=== PATIENT | female | born 1960 | race Caucasian/White ===

== ENCOUNTER 2018-07-16 19:24 | Inpatient (IN) ==
[2018-07-16 20:21] VITALS: RESP 16
[2018-07-16] MEDS ORDERED: Sod Chloride 0.9% Inj 1,000 ML IV.SIG ONE (21:08)
[2018-07-16] MEDS ORDERED: Pantoprazole Inj 40 MG Vial IV.PUSH ONE ×2 (21:08→22:52)
[2018-07-16] MEDS ORDERED: HYDROmorphone PF Inj 0.5 MG/0.5 ML Syringe IV.PUSH STA (21:10)
[2018-07-16] MEDS ORDERED: HYDROmorphone PF Inj 2 MG/ML Vial IV.PUSH STA (21:23)
[2018-07-16 21:31] LABS: Baso # (Auto) 0.1 th/mm3 (0.0-0.2); Baso % (Auto) 0.6 % (0.0-2.0); Eos # (Auto) 0.2 th/mm3 (0.0-0.4); Eos % (Auto) 1.7 % (0.0-4.0); Hematocrit 24.4 % (35.0-46.0); Hemoglobin 7.7 gm/dL (11.6-15.3); Lymph # (Auto) 1.3 th/mm3 (1.0-4.8); Mean Corpuscular HGB Conc 31.6 % (32.0-36.0); Mean Corpuscular Hemoglobin 24.1 pg (27.0-34.0); Mean Corpuscular Volume 76.1 fL (80.0-100.0); Mean Platelet Volume 7.5 fL (7.0-11.0); Mono % (Auto) 7.3 % (0.0-8.0); Neut # (Auto) 10.5 th/mm3 (1.8-7.7); Neut % (Auto) 80.4 % (16.0-70.0); Platelet Count 544 th/mm3 (150-450); Red Blood Count 3.21 mil/mm3 (4.00-5.30); Red Cell Distribution Width 19.6 % (11.6-17.2); White Blood Count 13.1 th/mm3 (4.0-11.0)
--- NOTE | 2018-07-16 21:36 | ED ---
HPI General Chief complaint: GI Bleed Stated complaint: doc sent/GI Time Seen by Provider: 07/16/18 20:58 Source: patient and family Mode of arrival: wheelchair Limitations: no limitations History of Present Illness HPI Narrative: 57-year-old female that presents to the ED for evaluation of abdominal pain and possible GI bleed. Per patient she has small cell lung carcinoma diagnosed in September. Has been treated for it but continued to have symptoms. Apparently at the time patient was told that will be a good candidate for the new medication for it but apparently patient had a bad reaction where the immunotherapy attacked her own body and her cells and she started to develop thyroid issues as well as other conditions. She has been losing weight. Per patient on May she was here for evaluation of abdominal pain that continued to get worse. She chronically takes OxyContin and other pain medications. She follows with Dr. Esparza for oncology.. Dr. Esparza is doing new testing to see what they can treat her with. When she was seen here she had findings consistent with appears to be likely metastatic disease. Patient states that for the past month she has been having dark stools. She has been followed by her doctor for this and apparently had a transfusion on Thursday. She continues to have the dark stools but her main concern is to now she is having swelling on her belly that has been worsening for the past week and the pain has not improved even with her pain medication which chronically takes. She denies any chest pain or shortness of breath. No nausea or vomiting. Pain per patient is 10 out of 10. Bili on the abdomen. Related Data Home Medications Medication Instructions Recorded Confirmed albuterol sulfate 2 puff INHALATION Q4-6H PRN 06/12/18 07/16/18 cholecalciferol (vitamin D3) 1,000 unit PO DAILY 06/12/18 07/16/18 diphenhydramine HCl 25 mg PO Q4-6H PRN 06/12/18 07/16/18 duloxetine 60 mg PO BID 06/12/18 07/16/18 gabapentin 300 mg PO TID 06/12/18 07/16/18 oxycodone 10 mg PO Q4H PRN 06/12/18 07/16/18 oxycodone 30 mg PO Q12H 06/12/18 07/16/18 pantoprazole 40 mg PO DAILY 06/12/18 07/16/18 tizanidine 4 mg PO Q8H PRN 06/12/18 07/16/18 ferrous sulfate [iron] 325 mg PO BID 07/16/18 07/16/18 Previous Rx's Medication Instructions Recorded promethazine 12.5 mg PO Q6H #20 tab 06/12/18 sulfamethoxazole-trimethoprim 1 tab PO Q12H #14 tab 06/12/18 [Bactrim DS] Allergies Allergy/AdvReac Type Severity Reaction Status Date / Time duloxetine Allergy Severe NAUSEA Verified 07/16/18 20:17 morphine Allergy Severe NAUSEA Verified 07/16/18 20:17 rofecoxib Allergy Severe NAUSEA, Verified 07/16/18 20:17 HEADACHE adhesive tape Allergy Rash Verified 07/16/18 20:16 ondansetron [From Zofran] Allergy Vomiting Verified 07/16/18 20:16 Review of Systems ROS: all other systems reviewed are negative PMFSH History History Provided By: Patient Medical History Medical History Anxiety (Acute) COPD (chronic obstructive pulmonary disease) (Acute) Depressed (Acute) Hypothyroidism (acquired) (Acute) Inguinal hernia (Acute) Small cell lung cancer (Acute) Surgical History Surgical History History of hip surgery (Acute) Social History Social History Substance History: No History of Abuse Second Hand Smoke Exposure: No Smoking Status: Current every day smoker Tobacco Type: Cigarettes How Often Do You Have a Drink Containing Alcohol: Never Recent Travel in [facility] within the Last 8 Weeks: No Recent Out of Country Travel within the Last 8 Weeks: No Exam Narrative Exam Narrative: GENERAL: Well-groomed but in some discomfort SKIN: Focused skin assessment warm/dry. HEAD: Atraumatic. Normocephalic. EYES: Pupils equal and round. No scleral icterus. No injection or drainage. ENT: No nasal bleeding or discharge. Mucous membranes pink and moist. NECK: Trachea midline. No JVD. CARDIOVASCULAR: Regular rate and rhythm. No murmur appreciated. RESPIRATORY: No accessory muscle use. Clear to auscultation. Breath sounds equal bilaterally. GASTROINTESTINAL: Abdomen soft, very tender to touch, distended. Hepatic and splenic margins not palpable. REctal exam revealed multiple small hemorrhoids in the exterior anus. MUSCULOSKELETAL: No obvious deformities. No clubbing. No cyanosis. 2+ pitting edema in the lower extremities. NEUROLOGICAL: Awake and alert. No obvious cranial nerve deficits. Motor grossly within normal limits. Normal speech. PSYCHIATRIC: Appropriate mood and affect; insight and judgment normal. Procedures Hemaprompt Stool Procedural Steps Taken: specimen placed in appropriate test area, developer placed on specimen and control areas and controls appropriately positive and negative Hemaprompt Stool Result: positive Additional Comments: very small amount of stool obtained Course Initial Documented Vital Signs Temperature 98.5 F 07/16/18 20:17 Pulse Rate 76 07/16/18 20:17 Respiratory Rate 16 07/16/18 20:17 Blood Pressure 101/56 L 07/16/18 20:17 Pulse Oximetry 100 07/16/18 20:17 Last Documented Vital Signs Temperature 98.5 F 07/17/18 01:20 Pulse Rate 69 07/17/18 01:20 Respiratory Rate 16 07/17/18 01:20 Blood Pressure 111/66 07/17/18 01:20 Pulse Oximetry 99 07/17/18 01:20 Sign Out Sign Out Data: Patient Sign Out occurred on 07/16/18 at 23:42. Patient's care was discussed, and care was transferred from [place] to Fredrick Davenport DO. Sign Out Comment: Waiting on CT scans. Likely admit for intractable abdominal pain and GI bleed, getting blood and protonix. Last updated by Fadi Cobos PA at 07/16/18 23:02 Medical Decision Making MDM Narrative Medical decision making narrative: 57-year-old female that presents to the ED for evaluation of abdominal pain and swelling and possible GI bleed. Patient was properly examined and was found to have signs and symptoms concerning for likely metastatic disease worsening pain secondary to this. Patient was given IV medications. Labs and imaging order. Patient is very tender on exam. Cannot really get a good physical on her because she is extremely tender. She was given IV pain medications and will reassess. Imaging still pending at the running of this note. Case was signed out to DR Saravia pending disposition and possible admission. Patient given blood due to low hemoglobin. Medical Screen Exam Complete: Yes Emergency Medical Condition: Yes Differential Diagnosis Differential Diagnosis: Acute abdomen versus pancreatitis versus GI bleed versus gastric pain versus metastatic disease versus liver failure Medical Records Medical records reviewed: Yes I reviewed the patient's medical records. Lab Data Lab results reviewed: Yes I reviewed the patient's lab results. Result diagrams: 07/16/18 21:20 07/16/18 21:20 Lab Results 07/16/18 07/16/18 07/16/18 Range/Units 21:20 21:20 21:20 WBC 13.1 H (4.0-11.0) th/mm3 RBC 3.21 L (4.00-5.30) mil/mm3 Hgb 7.7 L (11.6-15.3) gm/dL Hct 24.4 L (35.0-46.0) % MCV 76.1 L (80.0-100.0) fL MCH 24.1 L (27.0-34.0) pg MCHC 31.6 L (32.0-36.0) % RDW 19.6 H (11.6-17.2) % Plt Count 544 H (150-450) th/mm3 MPV 7.5 (7.0-11.0) fL Neut % (Auto) 80.4 H (16.0-70.0) % Lymph % (Auto) 10.0 (9.0-44.0) % [place] % (Auto) 7.3 (0.0-8.0) % Eos % (Auto) 1.7 (0.0-4.0) % Baso % (Auto) 0.6 (0.0-2.0) % Neut # (Auto) 10.5 H (1.8-7.7) th/mm3 Lymph # (Auto) 1.3 (1.0-4.8) th/mm3 [place] # (Auto) 1.0 H (0.0-0.9) th/mm3 Eos # (Auto) 0.2 (0.0-0.4) th/mm3 Baso # (Auto) 0.1 (0.0-0.2) th/mm3 WBC Differential . Differential Comment Auto diff final PT 10.9 (9.8-11.6) sec INR 1.1 Ratio APTT 24.6 (24.3-30.1) sec Sodium 140 (136-145) meq/L Potassium 4.4 (3.5-5.1) meq/L Chloride 105 (98-107) meq/L Carbon Dioxide 27.9 (21.0-32.0) meq/L Anion Gap 7 (5-15) meq/L BUN 14 (7-18) mg/dL Creatinine 0.60 (0.50-1.00) mg/dL Estimated GFR Greater than 89 (>89) mL/min Random Glucose 96 (74-106) mg/dL Lactic Acid (0.4-2.0) mmol/L Calcium 8.1 L (8.5-10.1) mg/dL Total Bilirubin 0.2 (0.2-1.0) mg/dL AST 12 L (15-37) U/L ALT 10 (10-53) U/L Alkaline Phosphatase 53 (45-117) U/L Ammonia (11-32) mcmol/L Total Protein 5.9 L D (6.4-8.2) g/dL Albumin 2.2 L (3.4-5.0) g/dL Lipase 65 L (73-393) U/L Blood Type Antibody Screen MTS Gel Crossmatch Bld Prod Order Comment 07/16/18 07/16/18 07/16/18 Range/Units 21:20 21:20 21:20 WBC (4.0-11.0) th/mm3 RBC (4.00-5.30) mil/mm3 Hgb (11.6-15.3) gm/dL Hct (35.0-46.0) % MCV (80.0-100.0) fL MCH (27.0-34.0) pg MCHC (32.0-36.0) % RDW (11.6-17.2) % Plt Count (150-450) th/mm3 MPV (7.0-11.0) fL Neut % (Auto) (16.0-70.0) % Lymph % (Auto) (9.0-44.0) % [place] % (Auto) (0.0-8.0) % Eos % (Auto) (0.0-4.0) % Baso % (Auto) (0.0-2.0) % Neut # (Auto) (1.8-7.7) th/mm3 Lymph # (Auto) (1.0-4.8) th/mm3 [place] # (Auto) (0.0-0.9) th/mm3 Eos # (Auto) (0.0-0.4) th/mm3 Baso # (Auto) (0.0-0.2) th/mm3 WBC Differential Differential Comment PT (9.8-11.6) sec INR Ratio APTT (24.3-30.1) sec Sodium (136-145) meq/L Potassium (3.5-5.1) meq/L Chloride (98-107) meq/L Carbon Dioxide (21.0-32.0) meq/L Anion Gap (5-15) meq/L BUN (7-18) mg/dL Creatinine (0.50-1.00) mg/dL Estimated GFR (>89) mL/min Random Glucose (74-106) mg/dL Lactic Acid 1.6 (0.4-2.0) mmol/L Calcium (8.5-10.1) mg/dL Total Bilirubin (0.2-1.0) mg/dL AST (15-37) U/L ALT (10-53) U/L Alkaline Phosphatase (45-117) U/L Ammonia 15 (11-32) mcmol/L Total Protein (6.4-8.2) g/dL Albumin (3.4-5.0) g/dL Lipase (73-393) U/L Blood Type A Positive Antibody Screen Negative MTS Gel Crossmatch Bld Prod Order Comment 07/16/18 Range/Units 22:50 WBC (4.0-11.0) th/mm3 RBC (4.00-5.30) mil/mm3 Hgb (11.6-15.3) gm/dL Hct (35.0-46.0) % MCV (80.0-100.0) fL MCH (27.0-34.0) pg MCHC (32.0-36.0) % RDW (11.6-17.2) % Plt Count (150-450) th/mm3 MPV (7.0-11.0) fL Neut % (Auto) (16.0-70.0) % Lymph % (Auto) (9.0-44.0) % [place] % (Auto) (0.0-8.0) % Eos % (Auto) (0.0-4.0) % Baso % (Auto) (0.0-2.0) % Neut # (Auto) (1.8-7.7) th/mm3 Lymph # (Auto) (1.0-4.8) th/mm3 [place] # (Auto) (0.0-0.9) th/mm3 Eos # (Auto) (0.0-0.4) th/mm3 Baso # (Auto) (0.0-0.2) th/mm3 WBC Differential Differential Comment PT (9.8-11.6) sec INR Ratio APTT (24.3-30.1) sec Sodium (136-145) meq/L Potassium (3.5-5.1) meq/L Chloride (98-107) meq/L Carbon Dioxide (21.0-32.0) meq/L Anion Gap (5-15) meq/L BUN (7-18) mg/dL Creatinine (0.50-1.00) mg/dL Estimated GFR (>89) mL/min Random Glucose (74-106) mg/dL Lactic Acid (0.4-2.0) mmol/L Calcium (8.5-10.1) mg/dL Total Bilirubin (0.2-1.0) mg/dL AST (15-37) U/L ALT (10-53) U/L Alkaline Phosphatase (45-117) U/L Ammonia (11-32) mcmol/L Total Protein (6.4-8.2) g/dL Albumin (3.4-5.0) g/dL Lipase (73-393) U/L Blood Type Antibody Screen MTS Gel Crossmatch See Detail Bld Prod Order Comment Imaging Data Radiologist's impression: Chest CT 07/16/18 21:14 CONCLUSION: 1. Diffuse emphysematous change. 2. Interstitial disease being worse at the bases especially on the left. 3. Persistent focal densities in the lungs including an irregular density in the right upper lobe, groundglass opacity in the left lingula, focal density in the inferior lateral left lower lobe, and a subpleural density in the posterior lateral left mid chest. The mass at the inferior left lateral lower lobe has increased in size since the prior exam. All the other findings are stable. All these findings could be further characterized with a PET FDG study. 4. 1.4 cm left breast mass. This was present on the prior exam. Abdomen/Pelvis CT 07/16/18 22:29 CONCLUSION: 1. Area of suspected thickening small bowel in the posterior left mid abdomen and possibly to a lesser degree at the anterior right mid abdomen. The cause of these areas of suspected small bowel thickening and dilatation are not known. 2. Mild ascites. 3. Mild intrahepatic biliary duct dilatation. The gallbladder is nondistended. The gallbladder wall appears thickened. 4. Persistent 4 cm splenic mass. This appears larger on the current exam. Discharge Plan Discharge Disposition Patient Disposition: 30 Still Patient Discharge Condition Condition: Fair Discharge Details Diagnosis: GI bleed, Anemia, Lung cancer, Intractable abdominal pain Physicians Team ED Provider: Fredrick Davenport Primary Care Provider: UNKNOWN, Attending Provider: Brenda Dukes Other Providers: Whit Denton Tabitha N Discharge Interventions Interventions: ED Discharge Assessment Last Done: 07/17/18 04:29 Vital Signs Last Done: 07/16/18 22:18 Status ED Status: Left Department Discharge Information Discharge Date/Time: 07/17/18 04:16
[2018-07-16 21:44] LABS: Activated Partial Thrombo Time 24.6 sec (24.3-30.1); INR 1.1 Ratio; Prothrombin Time 10.9 sec (9.8-11.6)
[2018-07-16 21:49] LABS: Alanine Aminotransferase 10 U/L (10-53); Albumin 2.2 g/dL (3.4-5.0); Anion Gap 7 meq/L (5-15); Aspartate Aminotransferase 12 U/L (15-37); Blood Urea Nitrogen 14 mg/dL (7-18); Calcium 8.1 mg/dL (8.5-10.1); Carbon Dioxide 27.9 meq/L (21.0-32.0); Chloride 105 meq/L (98-107); Glomerular Filtration Rate Greater Than 89 mL/min (>89); Glucose,Random 96 mg/dL (74-106); Lipase 65 U/L (73-393); Potassium 4.4 meq/L (3.5-5.1); Sodium 140 meq/L (136-145)
[2018-07-16 21:52] LABS: Alkaline Phosphatase 53 U/L (45-117); Total Protein 5.9 g/dL (6.4-8.2)
[2018-07-16] MEDS ORDERED: HYDROmorphone PF Inj 2 MG/ML Vial IV.PUSH ONE (22:10)
[2018-07-16] MEDS ORDERED: Sodium Chlor 0.9% Inj 250 ML IV.SIG SCH (23:00)
[2018-07-16] MEDS: Pantoprazole Inj 80 MG in Sodium Chlor 0.9% Inj 100 ML IV.CONT SCH (23:10)
--- NOTE | 2018-07-16 23:55 | CT ---
EXAM DATE: 07/16/2018 11:34 PM EDT AGE/SEX: 57 years / Female INDICATIONS: Abnormal chest x-ray; possible mass. CLINICAL DATA: This is the patient's initial encounter. Patient reports that signs and symptoms have been present for 1 day and indicates a pain score of 5/10. MEDICAL/SURGICAL HISTORY: None. None. RADIATION DOSE: 5.10 CTDI (mGy) ; Combined studies COMPARISON: [facility] – [place], CT CHEST W CONTRAST, 06/12/2018. . TECHNIQUE: Multiple contiguous axial images were obtained through the chest during bolus infusion of 96 ml Omnipaque 350 (iohexol) nonionic water-soluble contrast as a cumulative dose for multiple exa ms. Images were obtained in suspended respiration using multiple row detector helical technique. U sing automated exposure control and adjustment of the mA and/or kV according to patient size, radiati on dose was kept as low as reasonably achievable to obtain optimal diagnostic quality images. DICOM format image data is available electronically for review and comparison. FINDINGS: Lungs: There is diffuse emphysematous change. There is interstitial disease being worse at the bases . There is continued irregular density in the medial right upper lobe. The central aspect of this are a measures approximately 1.7 cm. This appears unchanged from the prior exam. There is groundglass op[place] seen in the left lingula and posterior left lower lobe. There is more focal prominence in inters titial disease at the left lower lobe. There are some subpleural density seen at the posterior left l ateral aspect of the mid left chest. This subpleural area density measures approximately 2.7 x 1.2 cm . There is also a focal area of density seen in the anterior lateral inferior left lower lobe measuri ng up to 1.6 cm. This area appears larger on the current exam. Mediastinum: There is good visualizat ion of the great vessels of the middle mediastinum. No evidence of mediastinal or hilar adenopathy/m ass. Pleurae: No evidence of focal thickening or pleural effusion. Axillae: Unremarkable. Bony Structures: Anterior cervical fusion plate present. Focal bone lesions are not seen. Miscellaneous: The patient is to have a CT of the abdomen and pelvis to follow. There is a 1.4 cm le ft breast mass. CONCLUSION: 1. Diffuse emphysematous change. 2. Interstitial disease being worse at the bases especially on the left. 3. Persistent focal densities in the lungs including an irregular density in the right upper lobe, g roundglass opacity in the left lingula, focal density in the inferior lateral left lower lobe, and a subpleural density in the posterior lateral left mid chest. The mass at the inferior left lateral low er lobe has increased in size since the prior exam. All the other findings are stable. All these find ings could be further characterized with a PET FDG study. 4. 1.4 cm left breast mass. This was present on the prior exam. Electronically signed by: Jeff Monk MD 07/16/2018 11:53 PM EDT
[2018-07-17] MEDS ORDERED: HYDROmorphone PF Inj 2 MG/ML Vial IV.PUSH PRN (00:06)
--- NOTE | 2018-07-17 00:06 | CT ---
EXAM DATE: 07/16/2018 11:40 PM EDT AGE/SEX: 57 years / Female INDICATIONS: Abdominal pain and black stools; possible GI bleed. CLINICAL DATA: This is the patient's initial encounter. Patient reports that signs and symptoms have been present for 1 day and indicates a pain score of 6/10. MEDICAL/SURGICAL HISTORY: None. None. ORAL CONTRAST: No oral contrast ingested. RADIATION DOSE: 5.10 CTDI (mGy) ; Combined studies COMPARISON: [facility] – [place], CT ABDOMEN & PELVIS W CONTRAST, 06/12/2018. . TECHNIQUE: Multiple contiguous axial images were obtained through the abdomen and pelvis following b olus infusion of 96 ml Omnipaque 350 (iohexol) nonionic water-soluble contrast as a cumulative dose for multiple exams. No oral contrast ingested. Using automated exposure control and adjustment of t he mA and/or kV according to patient size, radiation dose was kept as low as reasonably achievable to obtain optimal diagnostic quality images. DICOM format image data is available electronically for r eview and comparison. FINDINGS: Lower Lungs: Please see the CT of the chest report. Liver: There is mild intrahepatic biliary duct dilatation. This is nonspecific. The gallbladder is no t distended. Gallbladder wall appears thickened. Some this appearance may be secondary to the lack of distention. Spleen: There is a persistent 4 x 3.3 cm mass at the posterior medial aspect of the spleen. This is smooth and round with internal heterogeneity. This appears larger when compared to the prior exam. On the prior exam, this measured approximately 3.7 x 3.1 cm. Pancreas: Unremarkable without mass or calcification. Kidneys: Normal in size and shape. No evidence of mass or hydronephrosis. Adrenal Glands: Unremarkable. Aorta: The aorta and proximal iliac vessels are grossly unremarkable without aneurysmal dilation. A therosclerotic calcifications are present. Bowel/Mesentery: The study was performed without oral contrast. There is an abnormal masslike area s een in the posterior left mid abdomen. This area measures approximately 7.7 x 6.4 x 7.4 cm. This appe ars to have a thickened peripheral area and a central area of fluid and air. This could be a distende d area of thickened bowel. An abscess cannot be excluded. This was present on the prior exam. It was less prominent. On the prior exam this appears more likely related to an area of focal thickening sma ll bowel. There also appears to be a possible new area of focal small bowel thickening in the anterio r right mid abdomen. There is free fluid in the peritoneal cavity mainly in the pelvis. Free air is n ot seen. Abdominal Wall: Intact. Retroperitoneum: No evidence of adenopathy in the retrocrural, para-aortic, or deep pelvic regions. Bladder: Contours are smooth. Reproductive Organs: No abnormal masses or calcifications seen. Inguinal: The inguinal region is unremarkable without evidence of adenopathy. Bony Structures: Unremarkable. CONCLUSION: 1. Area of suspected thickening small bowel in the posterior left mid abdomen and possibly to a less er degree at the anterior right mid abdomen. The cause of these areas of suspected small bowel thicke brandon and dilatation are not known. 2. Mild ascites. 3. Mild intrahepatic biliary duct dilatation. The gallbladder is nondistended. The gallbladder wall appears thickened. 4. Persistent 4 cm splenic mass. This appears larger on the current exam. Electronically signed by: Jeff Monk MD 07/17/2018 12:05 AM EDT
[2018-07-17] MEDS ORDERED: Temazepam 15 MG Capsule PO PRN (00:08)
[2018-07-17] MEDS ORDERED: Acetaminophen 325 MG Tablet PO PRN (00:08)
[2018-07-17] MEDS ORDERED: Bisacodyl 10 MG Supp RECTAL PRN (00:08)
[2018-07-17] MEDS: Ciprofloxacin 400 MG/200 ML 400 MG/200 ML PIGGYBACK IV.SIG SCH ×2 (01:22→13:16)
--- NOTE | 2018-07-17 02:27 | P.HPIM ---
History of Present Illness Primary Care Physician: UNKNOWN History of Present Illness: This is a 57-year-old female with a PMH of Small Cell Lung CA, Anxiety, Depression, COPD, Chronic Pain and Tobacco Abuse who was referred to the ER by Dr. Esparza for transfusion. States she was seen by Dr. Esparza on Thursday (3 days ago), Hgb 6.4 at that time, previously 10.1 on 06/12/18, s/p 1u pRBC transfusion 07/12/18. Repeat Hgb today 7.7. Notes dark stool in addition to abdominal pain. Pain is generalized, severe, constant, 10/10, non-radiating, associated w / significant bloating. No reported nausea/vomiting. On arrival, BP 114/67, HR 72, O2 sat 99% on RA, Afebrile. WBC 13.1. Hemoglobin 7.7. INR 1.1. Hemoccult +. Chemistry essentially unremarkable. CT Chest w/ persistent focal densities in the lungs, inferior left lateral lobe mass increased in size, 1.4 cm breast mass seen on prior exam. CT Abdomen/Pelvis suspected thickening small bowel and anterior right mid abdomen, mild ascites, gallbladder wall thickening, persistent 4 cm splenic mass. 2u pRBC ordered, receiving transfusion at this time. - Diagnosis (1) GI bleed (2) Anemia (3) Intractable abdominal pain (4) Lung cancer Inpatient Certification: I certify that the inpatient services were ordered in accordance with Medicare regulations governing the order. This includes certification that hospital inpatient services are reasonable and necessary and in the case of services not specified as inpatient-only under 42 CFR 419.22(n), that they are appropriately provided as inpatient services in accordance to with the 2-midnight benchmark under 43 CFR 412.3(e) Estimated Total Length of Stay (Days): 2 Plans for Post Hospital Care: Not yet determined Review of Systems PAST FAMILY HISTORY: Reviewed. No h/o DM or CAD All other systems reviewed negative except as stated in HPI PMFSH - History History Provided By: Patient - Medical History Medical History: Medical History (Last Reviewed 07/16/18 @ 21:33 by ISHAAN Beach) Anxiety COPD (chronic obstructive pulmonary disease) Depressed Hypothyroidism (acquired) Inguinal hernia Small cell lung cancer - Surgical History Surgical History: Surgical History (Last Reviewed 07/16/18 @ 21:33 by ISHAAN Beahc) History of hip surgery - Tobacco History Second Hand Smoke Exposure: Yes Tobacco Use In Past 30 Days: Yes Smoking Status: Current every day smoker Tobacco Type: Cigarettes - Alcohol History How Often Do You Have a Drink Containing Alcohol: Never - Substance Use History Substance History: No History of Abuse - Travel History Recent Travel in the [place] Within the Last 8 Weeks: No Recent Travel Out of the Country Within the Last 8 Weeks: No - Immunization History Tetanus Immunization: Unsure Medications and Allergies Active Medications: Active Medications Acetaminophen (Tylenol) 650 mg PO Q4H PRN PRN Reason: Temp > 100.4 Al Hydroxide/Mg Hydroxide (Milk Of Magnesia Liq) 30 ml PO Q12H PRN PRN Reason: Mild Constipation Bisacodyl (Dulcolax Supp) 10 mg RECTAL DAILY PRN PRN Reason: SEVERE CONSITIPATION Duloxetine HCl (Cymbalta) 60 mg PO BID [facility] Last Admin: 07/17/18 01:23 Dose: 30 mg Hydromorphone HCl (Dilaudid Pf Inj) 1 mg IV.PUSH Q4H PRN PRN Reason: PAIN 6-10 Sodium Chloride (Ns Inj) 250 mls @ 15 mls/hr IV.SIG ONCE TISH Stop: 07/17/18 15:39 Pantoprazole Sodium 80 mg/ (Sodium Chloride) 100 mls @ 10 mls/hr IV.CONT CONT TISH Last Admin: 07/16/18 23:10 Dose: 10 mls/hr Ciprofloxacin/Dextrose (Cipro 400 Mg/200 Ml Inj) 400 mg in 200 mls @ 200 mls/ hr IV.SIG Q12H [facility] Last Infusion: 07/17/18 01:54 Dose: 200 mls/hr Metronidazole/Sodium Chloride (Flagyl 500 Mg Inj) 100 mls @ 100 mls/hr IV.SIG Q8H [facility] Last Admin: 07/17/18 01:54 Dose: 100 mls/hr Lactulose (Lactulose Liq) 30 ml PO DAILY PRN PRN Reason: SEVERE CONSITIPATION Oxycodone HCl (Roxicodone) 10 mg PO Q4H PRN PRN Reason: PAIN 3-5 Prochlorperazine Edisylate (Compazine Inj) 10 mg IV.PUSH Q6H PRN PRN Reason: NAUSEA/VOMITING Senna/Docusate Sodium (Carlita-Colace) 1 tab PO BID TISH Sennosides (Senokot) 17.2 mg PO Q12H PRN PRN Reason: Moderate Constipation Temazepam (Restoril) 15 mg PO HS PRN PRN Reason: INSOMNIA Allergies Allergy/AdvReac Type Severity Reaction Status Date / Time duloxetine Allergy Severe NAUSEA Verified 07/16/18 20:17 morphine Allergy Severe NAUSEA Verified 07/16/18 20:17 rofecoxib Allergy Severe NAUSEA, Verified 07/16/18 20:17 HEADACHE adhesive tape Allergy Rash Verified 07/16/18 20:16 ondansetron [From Zofran] Allergy Vomiting Verified 07/16/18 20:16 Home Medications Medication Instructions Recorded Confirmed Type albuterol sulfate 2 puff INHALATION Q4-6H PRN 06/12/18 07/16/18 History cholecalciferol (vitamin D3) 1,000 unit PO DAILY 06/12/18 07/16/18 History diphenhydramine HCl 25 mg PO Q4-6H PRN 06/12/18 07/16/18 History duloxetine 60 mg PO BID 06/12/18 07/16/18 History gabapentin 300 mg PO TID 06/12/18 07/16/18 History oxycodone 10 mg PO Q4H PRN 06/12/18 07/16/18 History oxycodone 30 mg PO Q12H 06/12/18 07/16/18 History pantoprazole 40 mg PO DAILY 06/12/18 07/16/18 History tizanidine 4 mg PO Q8H PRN 06/12/18 07/16/18 History ferrous sulfate [iron] 325 mg PO BID 07/16/18 07/16/18 History Exam Vital signs: Vital Signs 07/16/18 20:17 07/16/18 20:20 07/16/18 21:36 Temperature 98.5 F Pulse Rate 76 68 Respiratory Rate 16 16 Blood Pressure 101/56 L 92/58 L Pulse Oximetry 100 99 99 07/16/18 22:03 07/16/18 22:18 07/16/18 23:42 Temperature 98.4 F Pulse Rate 72 70 Respiratory Rate 16 16 16 Blood Pressure 114/67 98/60 L Pulse Oximetry 99 99 07/16/18 23:59 07/17/18 01:20 Temperature 98.5 F 98.5 F Pulse Rate 70 69 Respiratory Rate 16 16 Blood Pressure 98/60 L 111/66 Pulse Oximetry 99 99 Intake & Output 07/16/18 07/16/18 07/17/18 06:59 18:59 06:59 Intake Total 1500 / 1500 Balance 1500 / 1500 Weight 41.277 kg Intake: IV 1100 / 1100 Cipro 400 MG/200 ML Inj 400 mg 100 / 100 In 200 ml @ 200 mls/hr IV.SIG Q12H TISH Rx#:[id number] NS Inj 1,000 ML @ Wide Open IV. 1000 / 1000 SIG BOLUS ONE Rx#:[id number] Intake (Blood Product) Amt 400 / 400 Rbc As-3 Leukoreduced Unit 400 / 400 [id number] Narrative: PE: GENERAL: Middle-aged white female in no acute distress. Daughter at bedside HEENT: PERRLA, EOMI. No scleral icterus or conjunctival pallor. No lid lag or facial droop. CARDIOVASCULAR: Regular rate and rhythm. No obvious murmurs to auscultation. No chest tenderness to palpation. RESPIRATORY: No obvious rhonchi or wheezing. Clear to auscultation. Breath sounds equal bilaterally. GASTROINTESTINAL: Abdomen soft, generalized tenderness to palpation, + distention. BS normal. MUSCULOSKELETAL: Extremities without clubbing, cyanosis, or edema. No obvious deformities. NEUROLOGICAL: Flat affect, minimally conversive. Awake, alert and oriented x4. No focal neurologic deficits. Moving both upper and lower extremities spontaneously. Results - Labs CBC & Chem 7: 07/16/18 21:20 07/16/18 21:20 Labs: Short CBC 07/16/18 Range/Units 21:20 WBC 13.1 H (4.0-11.0) th/mm3 Hgb 7.7 L (11.6-15.3) gm/dL Hct 24.4 L (35.0-46.0) % Plt Count 544 H (150-450) th/mm3 BMP 07/16/18 21:20 Sodium 140 Potassium 4.4 Chloride 105 Carbon Dioxide 27.9 BUN 14 Creatinine 0.60 Calcium 8.1 L Liver Function 07/16/18 Range/Units 21:20 Total Bilirubin 0.2 (0.2-1.0) mg/dL AST 12 L (15-37) U/L ALT 10 (10-53) U/L Alkaline Phosphatase 53 (45-117) U/L Albumin 2.2 L (3.4-5.0) g/dL - Imaging Impressions Chest CT 07/16/18 21:14 CONCLUSION: 1. Diffuse emphysematous change. 2. Interstitial disease being worse at the bases especially on the left. 3. Persistent focal densities in the lungs including an irregular density in the right upper lobe, groundglass opacity in the left lingula, focal density in the inferior lateral left lower lobe, and a subpleural density in the posterior lateral left mid chest. The mass at the inferior left lateral lower lobe has increased in size since the prior exam. All the other findings are stable. All these findings could be further characterized with a PET FDG study. 4. 1.4 cm left breast mass. This was present on the prior exam. Abdomen/Pelvis CT 07/16/18 22:29 CONCLUSION: 1. Area of suspected thickening small bowel in the posterior left mid abdomen and possibly to a lesser degree at the anterior right mid abdomen. The cause of these areas of suspected small bowel thickening and dilatation are not known. 2. Mild ascites. 3. Mild intrahepatic biliary duct dilatation. The gallbladder is nondistended. The gallbladder wall appears thickened. 4. Persistent 4 cm splenic mass. This appears larger on the current exam. Caprini VTE Risk Assessment Caprini VTE Risk Assessment: No/Low Risk (score <= 1) VTE Pharmacological Exception Reason: Active bleeding Caprini Risk Assessment Model: Point Value = 1 Point Value = 2 Point Value = 3 Point Value = 5 Age 41-60 Minor surgery BMI > 25 kg/m2 Swollen legs Varicose veins or History of unexplained or recurrent spontaneous Oral contraceptives or hormone replacement Sepsis (< 1 month) Serious lung disease, including pneumonia (< 1 month) Abnormal pulmonary function Acute myocardial infarction Congestive heart failure (< 1 month) History of inflammatory bowel disease Medical patient at bed rest Age 61-74 Arthroscopic surgery Major open surgery (> 45 min) Laparoscopic surgery (> 45 min) Malignancy Confined to bed (> 72 hours) Immobilizing plaster cast Central venous access Age >= 75 History of VTE Family history of VTE Factor V Leiden Prothrombin [id number] Lupus anticoagulant Anticardiolipin antibodies Elevated serum homocysteine Heparin-induced thrombocytopenia Other congenital or acquired thrombophilia Stroke (< 1 month) Elective arthroplasty Hip, pelvis, or leg fracture Acute spinal cord injury (< 1 month) Prophylaxis Regimen: Total Risk Factor Score Risk Level Prophylaxis Regimen 0-1 Low Early ambulation 2 Moderate Order ONE of the following: *Sequential Compression Device (SCD) *Heparin 5000 units SQ BID 3-4 Higher Order ONE of the following medications: *Heparin 5000 units SQ TID *Enoxaparin/Lovenox 40 mg SQ daily (WT < 150 kg, CrCl > 30 mL/min) *Enoxaparin/Lovenox 30 mg SQ daily (WT < 150 kg, CrCl > 10-29 mL/min) *Enoxaparin/Lovenox 30 mg SQ BID (WT < 150 kg, CrCl > 30 mL/min) AND/OR *Sequential Compression Device (SCD) 5 or more Highest Order ONE of the following medications: *Heparin 5000 units SQ TID (Preferred with Epidurals) *Enoxaparin/Lovenox 40 mg SQ daily (WT < 150 kg, CrCl > 30 mL/min) *Enoxaparin/Lovenox 30 mg SQ daily (WT < 150 kg, CrCl > 10-29 mL/min) *Enoxaparin/Lovenox 30 mg SQ BID (WT < 150 kg, CrCl > 30 mL/min) AND *Sequential Compression Device (SCD) Assessment and Plan - Assessment (1) GI bleed Code(s): K92.2 - Gastrointestinal hemorrhage, unspecified Status: Acute (2) Anemia Code(s): D64.9 - Anemia, unspecified Status: Acute (3) Intractable abdominal pain Code(s): R10.9 - Unspecified abdominal pain Status: Acute (4) Lung cancer Code(s): C34.90 - Malignant neoplasm of unspecified part of unspecified bronchus or lung Status: Acute - Plan A/P: 1. GI Bleed: Hemoccult +, Protonix gtt, consult GI for further evaluation/ intervention. 2. Anemia: Secondary to above, Hgb 10.1 on 06/12/18, 6.4 on 07/12/18 s/p 1u pRBC transfusion, currently Hgb 7.7, 2u pRBC ordered in ER, currently receiving transfusion, check repeat Hgb/Hct after transfusion completed. 3. Lung CA: Following w/ Dr. Esparza, will consult for further evaluation/ recommendations. 4. Intractable Abd Pain: CT Abd/Pelvis w/ small bowel wall thickening, gallbladder wall thickening, images reviewed, WBC 13.1, possible colitis/early cholecystitis, will start on empiric treatment w/ Cipro/Flagyl, analgesics/ antiemetics as needed. 5. DVT Prophylaxis: Pharmacologic contraindication due to GI Bleed 6. Social work for DC planning as needed. 7. Case discussed at length with the ER physician, lab/record/imaging reviewed by me.
[2018-07-17] MEDS: Senna/Docusate Sodium 8.6/50 MG Tablet PO SCH (09:15)
[2018-07-17] MEDS ORDERED: Lidocaine PF 1% Inj 5 ML Syringe INFILTRATN ONE (12:00)
[2018-07-17] MEDS ORDERED: Phenylephrine/NS 1000 MCG/10ML Syringe IV.PUSH ONE (12:00)
[2018-07-17] MEDS ORDERED: Glycopyrrolate Inj 1 MG/5 ML Syringe IV.PUSH ONE (12:00)
--- NOTE | 2018-07-17 12:55 | MB ---
cc: Gudelia Nunez MD DATE: 07/17/2018 CHIEF COMPLAINT: 1. History of non-small cell lung cancer. 2. Gastrointestinal bleed. HISTORY OF PRESENT ILLNESS: Ms. Jovel is a 57-year-old lady with a history of non-small cell lung cancer. She was diagnosed with non-small cell lung cancer in approximately 09/2017. She was seen by an oncologist up in [place], [place]. She was found to have T4 N3 M1 metastatic lung adenocarcinoma after she presented in 09/2017 with progressively worsening shortness of breath. Imaging at that time showed a left-sided chest mass with a large mass in the left lower lobe with mediastinal and hilar adenopathy. She was noted to have periaortic lymph node metastasis, right jugular lymph node metastasis, as well as splenic lesions. She was also found to have postobstructive pneumonia and she was treated with antibiotics. Biopsy performed of the retroperitoneal adenopathy showed poorly differentiated adenocarcinoma of the lung primary. In 10/2017, she underwent palliative radiation therapy and received 10 fractions for a total of 30 Gy. This was due to increasing compression of the right and left bronchus and potential for catastrophic respiratory failure. Molecular testing was performed and she was found to have 100% PD-L1 positivity and she was subsequently initiated on Keytruda therapy in 10/2017. She was on that for approximately 5 months. She developed thyrotoxicosis in 01/2018 and pembrolizumab was held at that time. She has established care in our clinic with my colleague, Dr. Esparza. She was sent to the emergency room due to progressively worsening abdominal pain as well as anemia. She was transfused 1 unit of packed red blood cells. Outpatient laboratory studies with a hemoglobin of 6.4, MCV is 74.5, platelet count of 587,000. Creatinine, liver function tests not elevated. Total protein is low at 5.3 and albumin is low at 2.1. After blood transfusion hemoglobin tierra appropriately to 7.7. DIAGNOSTIC DATA: Imaging studies performed on 07/16/2018. CT scan of the chest showed diffuse emphysematous change, interstitial disease, is worse at the bases. She has focal densities in the lungs, including an irregular density in the right upper lobe, ground-glass opacity in the left lingula, focal density in the inferior lateral left lower lobe, and a subpleural density in the posterior lateral left mid chest. The mass at the inferior left lateral lower lobe has increased in size from the prior exam. Also noted was a 1.4 cm left breast mass. CT scan of the abdomen and pelvis from the same date showed a persistent 4 x 3.3 cm mass at the posterior aspect of the spleen. She was also found to have an abnormal mass-like area seen in the posterior left mid abdomen which measured approximately 7.7 x 6.4 x 7.7 cm. The radiologist noted that this was a thickened peripheral area and central area of fluid and air. They said it could be a distended area of thickened bowel and abscess could not be excluded. They said it was likely related to an area of focal thickening of small bowel. Free fluid noted within the peritoneal cavity in the pelvis. REVIEW OF SYSTEMS: Positive for dark bloody and tarry stools and significant abdominal pain. PAST MEDICAL HISTORY: 1. Metastatic non-small cell, lung adenocarcinoma. PD-L1 positive at 100%. 2. Asthma. 3. Fibromyalgia. PAST SURGICAL HISTORY: Recent orthopedic surgeries. SOCIAL HISTORY: The patient has smoked 1 pack a day for many years. She is not interested in quitting. She denies alcohol use. She has a good support system with her daughter. FAMILY HISTORY: The patient reports multiple family members with malignancy. PHYSICAL EXAMINATION: VITAL SIGNS: Temperature 97.8, pulse 59, respiratory rate 16, blood pressure is 81/53 GENERAL: Thin, chronically ill-appearing lady, in no distress, sitting at bedside. HEENT: Head is normocephalic, atraumatic. Eyes: PERRLA, EOMI. No scleral icterus. CARDIOVASCULAR: Regular rate and rhythm with no murmurs. RESPIRATORY: Clear to auscultation bilaterally. ABDOMEN: Distended abdomen, diffusely tender to palpation. EXTREMITIES: No edema. NEUROLOGIC: Grossly nonfocal. PSYCHIATRIC: Tearful and anxious. ASSESSMENT AND PLAN: 1. Metastatic lung adenocarcinoma with metastatic disease to the hilar adenopathy, mediastinal adenopathy, retroperitoneal adenopathy, splenic lesion. 100% PD-L1 positivity with good response to Keytruda. This has been held for the past several months due to thyrotoxicosis. She will need close follow in clinic with Dr. Esparza to determine further treatment of metastatic NSCLC. Will need to compare most recent scans performed at our institution with scans performed in [place] to determine growth of disease. 2. Anemia status post transfusion of 1 unit of packed red blood cells with appropriate response. We will check iron profile, vitamin B12, and folate. The patient may need iron while inpatient. 3. Gastrointestinal bleed. GI team has been consulted. Area of thickened small bowel seen on imaging study. MD ADRIANA Brooks/ , 11:05 AM , 11:16 AM MICHAEL
--- NOTE | 2018-07-17 13:19 | P.CONGI ---
History of Present Illness Consult date: 07/17/18 Consult reason: GI bleeding Chief complaint: GI bleed, anemia History of Present Illness: This is a slim 57-year-old female who was admitted on 07/16/2018 with symptomatic anemia and possible GI bleed. According to the record patient was sent over per Dr. Esparza for transfusion. According to the record approximately 4 days ago patient's hemoglobin was 6.4 and previously noted 10.1 on 06/12/2018 patient was given 1 unit of blood and repeat hemoglobin was 7.7. Patient has history of small cell lung cancer. Currently patient has symptoms of upper abdomen and epigastric region with some guarding and increased pain over the past week and a half. Patient's also noted some melena stools and bloating for a week and a half but no nausea vomiting. Patient is a fair to poor historian and has her daughter on the phone checking some of her paperwork for her history. Previous EGD was noted to be done on May 10, 2018 daughter could not find the results page currently patient is complaining of some dyspepsia which has been off and on for the past 2 months and noted that she had been taken some antacids and Protonix. Patient denies any family history of colon cancer and states that she had a colonoscopy at least one year ago at an out-of-town facility but unknown results. Currently patient is n.p.o. and appears to be uncomfortable on a pain scale of 10 out of 10 and is waiting on pain meds she is requesting any testing be done today if at all possible. Some of the information is being gathered from the record on this case as patient currently is poor historian and is in a good bit of pain. Review of Systems All other systems reviewed negative except as stated in HPI PMFSH - History History Provided By: Patient - Medical History Medical History: Medical History (Last Reviewed 07/16/18 @ 21:33 by ISHAAN Beach) Anxiety COPD (chronic obstructive pulmonary disease) Depressed Hypothyroidism (acquired) Inguinal hernia Small cell lung cancer - Surgical History Surgical History: Surgical History (Last Reviewed 07/16/18 @ 21:33 by ISHAAN Beach) History of hip surgery - Tobacco History Second Hand Smoke Exposure: No Tobacco Use In Past 30 Days: Yes Smoking Status: Current every day smoker Tobacco Type: Cigarettes - Alcohol History How Often Do You Have a Drink Containing Alcohol: Never - Substance Use History Substance History: No History of Abuse - Travel History Recent Travel in the [place] Within the Last 8 Weeks: No Recent Travel Out of the Country Within the Last 8 Weeks: No - Immunization History Tetanus Immunization: Unsure Medications and Allergies Active Medications: Active Medications Acetaminophen (Tylenol) 650 mg PO Q4H PRN PRN Reason: Temp > 100.4 Al Hydroxide/Mg Hydroxide (Milk Of Magnesia Liq) 30 ml PO Q12H PRN PRN Reason: Mild Constipation Bisacodyl (Dulcolax Supp) 10 mg RECTAL DAILY PRN PRN Reason: SEVERE CONSITIPATION Duloxetine HCl (Cymbalta) 60 mg PO BID [facility] Last Admin: 07/17/18 09:15 Dose: 60 mg Hydromorphone HCl (Dilaudid Pf Inj) 1 mg IV.PUSH Q4H PRN PRN Reason: PAIN 6-10 Last Admin: 07/17/18 04:39 Dose: 1 mg Sodium Chloride (Ns Inj) 250 mls @ 15 mls/hr IV.SIG ONCE [facility] Stop: 07/17/18 15:39 Last Admin: 07/17/18 04:35 Dose: Not Given Pantoprazole Sodium 80 mg/ (Sodium Chloride) 100 mls @ 10 mls/hr IV.CONT CONT [facility] Last Admin: 07/16/18 23:10 Dose: 10 mls/hr Ciprofloxacin/Dextrose (Cipro 400 Mg/200 Ml Inj) 400 mg in 200 mls @ 200 mls/ hr IV.SIG Q12H [facility] Last Infusion: 07/17/18 04:36 Dose: Infused Metronidazole/Sodium Chloride (Flagyl 500 Mg Inj) 100 mls @ 100 mls/hr IV.SIG Q8H [facility] Last Admin: 07/17/18 09:15 Dose: 100 mls/hr Lactulose (Lactulose Liq) 30 ml PO DAILY PRN PRN Reason: SEVERE CONSITIPATION Nicotine (Habitrol 14 Mg Patch.24 Hr) 1 patch T-DERMAL DAILY [facility] Oxycodone HCl (Roxicodone) 10 mg PO Q4H PRN PRN Reason: PAIN 3-5 Patch Removal (Remove Old Patch) 1 each T-DERMAL DAILY [facility] Prochlorperazine Edisylate (Compazine Inj) 10 mg IV.PUSH Q6H PRN PRN Reason: NAUSEA/VOMITING Senna/Docusate Sodium (Carlita-Colace) 1 tab PO BID [facility] Last Admin: 07/17/18 09:15 Dose: Not Given Sennosides (Senokot) 17.2 mg PO Q12H PRN PRN Reason: Moderate Constipation Temazepam (Restoril) 15 mg PO HS PRN PRN Reason: INSOMNIA Allergies Allergy/AdvReac Type Severity Reaction Status Date / Time duloxetine Allergy Severe NAUSEA Verified 07/16/18 20:17 morphine Allergy Severe NAUSEA Verified 07/16/18 20:17 rofecoxib Allergy Severe NAUSEA, Verified 07/16/18 20:17 HEADACHE adhesive tape Allergy Rash Verified 07/16/18 20:16 ondansetron [From Zofran] Allergy Vomiting Verified 07/16/18 20:16 Home Medications Medication Instructions Recorded Confirmed Type albuterol sulfate 2 puff INHALATION Q4-6H PRN 06/12/18 07/16/18 History cholecalciferol (vitamin D3) 1,000 unit PO DAILY 06/12/18 07/16/18 History diphenhydramine HCl 25 mg PO Q4-6H PRN 06/12/18 07/16/18 History duloxetine 60 mg PO BID 06/12/18 07/16/18 History gabapentin 300 mg PO TID 06/12/18 07/16/18 History oxycodone 10 mg PO Q4H PRN 06/12/18 07/16/18 History oxycodone 30 mg PO Q12H 06/12/18 07/16/18 History pantoprazole 40 mg PO DAILY 06/12/18 07/16/18 History tizanidine 4 mg PO Q8H PRN 06/12/18 07/16/18 History ferrous sulfate [iron] 325 mg PO BID 07/16/18 07/16/18 History Exam Vital signs: Vital Signs 07/16/18 20:17 07/16/18 20:20 07/16/18 21:36 Temperature 98.5 F Pulse Rate 76 68 Respiratory Rate 16 16 Blood Pressure 101/56 L 92/58 L Pulse Oximetry 100 99 99 07/16/18 22:03 07/16/18 22:18 07/16/18 23:42 Temperature 98.4 F Pulse Rate 72 70 Respiratory Rate 16 16 16 Blood Pressure 114/67 98/60 L Pulse Oximetry 99 99 08/17/18 23:59 07/17/18 01:20 07/17/18 08:00 Temperature 98.5 F 98.5 F 97.8 F Pulse Rate 70 69 59 L Respiratory Rate 16 16 16 Blood Pressure 98/60 L 111/66 81/53 L Pulse Oximetry 99 99 96 07/17/18 12:00 Temperature 98.1 F Pulse Rate 74 Respiratory Rate 16 Blood Pressure 95/65 L Pulse Oximetry 97 Intake & Output 07/16/18 07/17/18 07/17/18 18:59 06:59 18:59 Intake Total 1600 / 1600 100 / 100 Balance 1600 / 1600 100 / 100 Weight 41.277 kg Intake: IV 1200 / 1200 100 / 100 Cipro 400 MG/200 ML Inj 400 mg 200 / 200 In 200 ml @ 200 mls/hr IV.SIG Q12H [facility] Rx#:[id number] NS Inj 1,000 ML @ Wide Open IV. 1000 / 1000 SIG [facility] Rx#:[id number] Flagyl 500 MG Inj 100 ML @ 100 0 / 0 100 / 100 mls/hr IV.SIG Q8H [facility] Rx#: [id number] Intake (Blood Product) Amt 400 / 400 Rbc As-3 Leukoreduced Unit 400 / 400 [id number] Other: Weight On Admission 41.277 kg - Constitutional moderate distress, thin, cachectic - Routine HEENT Exam Head: Present: normocephalic ENT: Present: mucous membranes dry - Routine Respiratory Exam Present: accessory muscle use (Low volumes but no obvious rhonchi) - Routine Cardiovascular Exam Present: S1, S2 - Routine Abdominal Exam Present: soft (Round, some guarding 2 epigastric area,taut) - Routine Skin Exam Present: pallor Results - Labs CBC & Chem 7: 07/16/18 21:20 07/16/18 21:20 Labs: Laboratory Results - last 24 hr 07/16/18 07/16/18 07/16/18 21:20 21:20 21:20 WBC 13.1 H RBC 3.21 L Hgb 7.7 L Hct 24.4 L MCV 76.1 L MCH 24.1 L MCHC 31.6 L RDW 19.6 H Plt Count 544 H MPV 7.5 Neut % (Auto) 80.4 H Lymph % (Auto) 10.0 Clinton % (Auto) 7.3 Eos % (Auto) 1.7 Baso % (Auto) 0.6 Neut # (Auto) 10.5 H Lymph # (Auto) 1.3 Clinton # (Auto) 1.0 H Eos # (Auto) 0.2 Baso # (Auto) 0.1 WBC Differential . Differential Comment Auto diff final PT 10.9 INR 1.1 APTT 24.6 Sodium 140 Potassium 4.4 Chloride 105 Carbon Dioxide 27.9 Anion Gap 7 BUN 14 Creatinine 0.60 Estimated GFR Greater than 89 Random Glucose 96 Lactic Acid Calcium 8.1 L Total Bilirubin 0.2 AST 12 L ALT 10 Alkaline Phosphatase 53 Ammonia Total Protein 5.9 L D Albumin 2.2 L Lipase 65 L Blood Type Antibody Screen MTS Gel Crossmatch Bld Prod Order Comment 07/16/18 07/16/18 07/16/18 21:20 21:20 21:20 WBC RBC Hgb Hct MCV MCH MCHC RDW Plt Count MPV Neut % (Auto) Lymph % (Auto) Clinton % (Auto) Eos % (Auto) Baso % (Auto) Neut # (Auto) Lymph # (Auto) Clinton # (Auto) Eos # (Auto) Baso # (Auto) WBC Differential Differential Comment PT INR APTT Sodium Potassium Chloride Carbon Dioxide Anion Gap BUN Creatinine Estimated GFR Random Glucose Lactic Acid 1.6 Calcium Total Bilirubin AST ALT Alkaline Phosphatase Ammonia 15 Total Protein Albumin Lipase Blood Type A Positive Antibody Screen Negative MTS Gel Crossmatch Bld Prod Order Comment 07/16/18 22:50 WBC RBC Hgb Hct MCV MCH MCHC RDW Plt Count MPV Neut % (Auto) Lymph % (Auto) [place] % (Auto) Eos % (Auto) Baso % (Auto) Neut # (Auto) Lymph # (Auto) [place] # (Auto) Eos # (Auto) Baso # (Auto) WBC Differential Differential Comment PT INR APTT Sodium Potassium Chloride Carbon Dioxide Anion Gap BUN Creatinine Estimated GFR Random Glucose Lactic Acid Calcium Total Bilirubin AST ALT Alkaline Phosphatase Ammonia Total Protein Albumin Lipase Blood Type Antibody Screen MTS Gel Crossmatch See Detail Bld Prod Order Comment - Imaging Impressions Chest CT 07/16/18 21:14 CONCLUSION: 1. Diffuse emphysematous change. 2. Interstitial disease being worse at the bases especially on the left. 3. Persistent focal densities in the lungs including an irregular density in the right upper lobe, groundglass opacity in the left lingula, focal density in the inferior lateral left lower lobe, and a subpleural density in the posterior lateral left mid chest. The mass at the inferior left lateral lower lobe has increased in size since the prior exam. All the other findings are stable. All these findings could be further characterized with a PET FDG study. 4. 1.4 cm left breast mass. This was present on the prior exam. Abdomen/Pelvis CT 07/16/18 22:29 CONCLUSION: 1. Area of suspected thickening small bowel in the posterior left mid abdomen and possibly to a lesser degree at the anterior right mid abdomen. The cause of these areas of suspected small bowel thickening and dilatation are not known. 2. Mild ascites. 3. Mild intrahepatic biliary duct dilatation. The gallbladder is nondistended. The gallbladder wall appears thickened. 4. Persistent 4 cm splenic mass. This appears larger on the current exam. Assessment and Plan (1) GI bleed Status: Acute Code(s): K92.2 - Gastrointestinal hemorrhage, unspecified (2) Anemia Status: Acute Code(s): D64.9 - Anemia, unspecified (3) Lung cancer Status: Acute Code(s): C34.90 - Malignant neoplasm of unspecified part of unspecified bronchus or lung (4) Intractable abdominal pain Status: Acute Code(s): R10.9 - Unspecified abdominal pain - Plan Dyspepsia onset of symptoms approximately 2 months ago in which patient has been using NSAIDs and some Protonix. Previous EGD was done on May 10 and out- of-town facility but unknown results. Does have decreased appetite. Melena stools worsened over the past week and a half with abdominal pain mid abdomen and epigastric region with bloating. Loose stools off and on for approximately 6 weeks. Patient is currently being treated for small cell lung cancer. Uncontrolled pain epigastric and abdominal pain with some guarding pain scale 10 out of 10. Currently patient is n.p.o. Symptomatic anemia requiring transfusions over the past week current hemoglobin 7.7 Plan N.p.o. diet Consent for EGD today Monitor labs with special attention to hemoglobin and transfuse as needed Supportive care Antiemetics Continue Cipro and Flagyl IV Further recommendations to follow after EGD Patient was seen per myself and Dr. Gonzalez, note was written on his behalf (1) GI bleed Qualifiers: GI bleed type/associated pathology: unspecified gastrointestinal hemorrhage type Qualified Code(s): K92.2 - Gastrointestinal hemorrhage, unspecified (2) Anemia Qualifiers: Anemia type: other cause Other causes of anemia: acute posthemorrhagic Qualified Code(s): D62 - Acute posthemorrhagic anemia (3) Lung cancer Qualifiers: Laterality: unspecified laterality Lung location: unspecified part of lung Qualified Code(s): C34.90 - Malignant neoplasm of unspecified part of unspecified bronchus or lung
--- NOTE | 2018-07-17 13:44 | GIPROC ---
[facility] [address] [facility]. [facility], [address] EGD PROCEDURE REPORT EXAM DATE: 07/17/2018 PATIENT NAME: Peyton Jovel MR #: [id number] BIRTHDATE: 1960 ATTENDING: Garcia Gonzalez MD ORDER #: [id number] [place] [employer] END: Herman Candelario STATUS: inpatient INDICATIONS: The patient is a 57 yr old female here for an EGD due to epigastric abdominal pain and melena PROCEDURE PERFORMED: EGD w/ biopsy MEDICATIONS: None and Per Anesthesia. TOPICAL ANESTHETIC: none CONSENT: The patient understands the risks and benefits of the procedure and understands that these risks include, but are not limited to: sedation, allergic reaction, infection, perforation and/or bleeding. Alternative means of evaluation and treatment include, among others: physical exam, x-rays, and/or surgical intervention. The patient elects to proceed with this endoscopic procedure. medical equipment was checked for proper function. Hand hygiene and appropriate measures for infection prevention was taken. After the risks, benefits and alternatives of the procedure were thoroughly explained, Informed consent was verified, confirmed and timeout was successfully executed by the treatment team. The patient was anesthetized with topical anesthesia and the EC-[id number] (Pedi C) endoscope was introduced through the mouth and advanced to the second portion of the duodenum. Retroflexed views revealed a hiatal hernia The gastroscope was then slowly withdrawn and removed. ESOPHAGUS: There was LA Class A esophagitis noted. White exudates consistent with candidiasis were found in the distal esophagus. Bx done. STOMACH: The mucosa of the stomach appeared normal. DUODENUM: The duodenal mucosa appeared normal in the entire duodenum. ADVERSE EVENTS: There were no complications. IMPRESSIONS: 1. There was LA Class A esophagitis noted 2. White exudates consistent with candidiasis in the distal esophagus 3. Bx done 4. The mucosa of the stomach appeared normal 5. Normal duodenal mucosa in the entire duodenum 6. Retroflexed views revealed a hiatal hernia RECOMMENDATIONS: 1. Await biopsy results. Biopsy results will not be ready for 7-10 days. If you don't hear from us in two weeks, call our office for biopsy results. 2. Colonoscopy for GIB work up PATIENT CONDITION: stable DISPOSITION: Inpatient REPEAT EXAM: Return as needed for EGD Garcia Gonzalez MD eSigned: Garcia Gonzalez MD 07/17/2018 1:43 PM cc: PATIENT NAME: Peyton Jovel MR#: [id number]
--- NOTE | 2018-07-17 17:26 | NM ---
EXAM DATE: 07/17/2018 5:22 PM EDT AGE/SEX: 57 years / Female INDICATIONS: Symptomatic anemia and possible GI bleed. CLINICAL DATA: This is the patient's initial encounter. Patient reports that signs and symptoms have been present for 1 day and indicates a pain score of 0/10. MEDICAL/SURGICAL HISTORY: Chronic obstructive pulmonary disease. Carcinoma, lung. Inguinal her padmini repair. Hip. COMPARISON: No prior exams available for comparison. TECHNIQUE: Following the modified in vitro labeling of autologous red cells, dynamic continuous image s were acquired for two hours. ?? DOSE: 21.2 mCi Tc 99m Ultratag Labeled Red Blood Cells IV IMAGING TIME: 1 hr 40 mins. FINDINGS: Biodistribution: There is a very good labeling of red cells without significant uptake in the gastri c wall. There is good delineation of the blood pool of the spleen and abdominal vessels. Bleeding: No episodes of active GI bleeding are observed during two hours of continuous observation . CONCLUSION: 1. Negative GI bleeding scan. Electronically signed by: William Pringle MD 07/17/2018 5:25 PM EDT
[2018-07-17 20:00] LABS: Folate 12.7 ng/mL (3.1-17.5)
[2018-07-17] MEDS: Pantoprazole Inj 80 MG in Sodium Chlor 0.9% Inj 100 ML IV.CONT SCH (20:25)
[2018-07-17 21:44] LABS: Hematocrit 28.1 % (35.0-46.0); Hemoglobin 8.8 gm/dL (11.6-15.3)
[2018-07-18] MEDS: Ciprofloxacin 400 MG/200 ML 400 MG/200 ML PIGGYBACK IV.SIG SCH ×2 (00:41→12:37)
[2018-07-18] MEDS: Senna/Docusate Sodium 8.6/50 MG Tablet PO SCH ×2 (00:42→08:46)
[2018-07-18 08:01] LABS: Baso # (Auto) 0.1 th/mm3 (0.0-0.2); Baso % (Auto) 0.7 % (0.0-2.0); Eos # (Auto) 0.1 th/mm3 (0.0-0.4); Eos % (Auto) 0.5 % (0.0-4.0); Hematocrit 28.9 % (35.0-46.0); Hemoglobin 8.8 gm/dL (11.6-15.3); Lymph # (Auto) 0.8 th/mm3 (1.0-4.8); Lymph % (Auto) 6.7 % (9.0-44.0); Mean Corpuscular Hemoglobin 24.2 pg (27.0-34.0); Mean Corpuscular Volume 79.5 fL (80.0-100.0); Mean Platelet Volume 7.7 fL (7.0-11.0); Mono # (Auto) 0.5 th/mm3 (0.0-0.9); Mono % (Auto) 4.8 % (0.0-8.0); Neut # (Auto) 9.9 th/mm3 (1.8-7.7); Neut % (Auto) 87.3 % (16.0-70.0); Platelet Count 505 th/mm3 (150-450); Red Blood Count 3.64 mil/mm3 (4.00-5.30); Red Cell Distribution Width 19.9 % (11.6-17.2); White Blood Count 11.3 th/mm3 (4.0-11.0)
[2018-07-18 08:05] LABS: Mean Corpuscular HGB Conc 30.4 % (32.0-36.0)
[2018-07-18 08:12] LABS: Alanine Aminotransferase 8 U/L (10-53); Albumin 1.8 g/dL (3.4-5.0); Anion Gap 9 meq/L (5-15); Aspartate Aminotransferase 13 U/L (15-37); Blood Urea Nitrogen 5 mg/dL (7-18); Calcium 7.7 mg/dL (8.5-10.1); Carbon Dioxide 23.4 meq/L (21.0-32.0); Chloride 113 meq/L (98-107); Glomerular Filtration Rate Greater Than 89 mL/min (>89); Glucose,Random 97 mg/dL (74-106); Potassium 3.3 meq/L (3.5-5.1); Sodium 145 meq/L (136-145)
[2018-07-18 08:14] LABS: Alkaline Phosphatase 48 U/L (45-117); Total Protein 5.3 g/dL (6.4-8.2)
--- NOTE | 2018-07-18 10:14 | P.PNONC ---
Subjective Interval history: Patient ambulating from the restroom. States "I want to go home, I need to go home, please let me get out of here" Reports diarrhea every hour with the slightest oral intake. Currently on clear liquids, once to advance her diet. Describes diarrhea as "stringy" Status post EGD. Objective Vital Signs/Intake & Output: Vital Signs 07/17/18 12:00 07/17/18 16:00 07/17/18 19:15 Temperature 98.1 F 97.4 F L 96.8 F L Pulse Rate 74 69 Respiratory Rate 16 16 Blood Pressure 95/65 L 111/64 98/78 L Pulse Oximetry 97 98 07/17/18 20:00 07/18/18 00:00 07/18/18 00:08 Temperature 98.3 F 98.3 F Pulse Rate 54 L 58 L 67 Respiratory Rate 16 16 Blood Pressure 94/60 L 105/65 Pulse Oximetry 98 98 07/18/18 04:00 07/18/18 08:00 Temperature 98.3 F 97.5 F L Pulse Rate 62 57 L Respiratory Rate 16 16 Blood Pressure 99/64 L 100/63 Pulse Oximetry 98 99 Intake & Output 07/17/18 07/18/18 07/18/18 18:59 06:59 18:59 Intake Total 300 / 300 540 / 540 Balance 300 / 300 540 / 540 Weight 41.2 kg Intake: IV 200 / 200 540 / 540 Protonix Inj 80 MG In NS Inj 140 / 140 100 ML @ 10 mls/hr IV.CONT CONT [facility] Rx#:[id number] Cipro 400 MG/200 ML Inj 400 mg 200 / 200 In 200 ml @ 200 mls/hr IV.SIG Q12H [facility] Rx#:[id number] Flagyl 500 MG Inj 100 ML @ 100 200 / 200 200 / 200 mls/hr IV.SIG Q8H [facility] Rx#: [id number] Anesthesia Amount 100 / 100 Other: # Voids 2 Date of Last Bowel Movement 07/17/18 07/15/18 Result Diagrams: 07/18/18 06:47 07/18/18 06:47 Laboratory Results: Laboratory Results - last 24 hr 07/17/18 07/17/18 07/18/18 18:05 20:16 06:47 WBC 11.3 H RBC 3.64 L Hgb 8.8 L 8.8 L Hct 28.1 L 28.9 L MCV 79.5 L MCH 24.2 L MCHC 30.4 L RDW 19.9 H Plt Count 505 H MPV 7.7 Neut % (Auto) 87.3 H Lymph % (Auto) 6.7 L [place] % (Auto) 4.8 Eos % (Auto) 0.5 Baso % (Auto) 0.7 Neut # (Auto) 9.9 H Lymph # (Auto) 0.8 L [place]y # (Auto) 0.5 Eos # (Auto) 0.1 Baso # (Auto) 0.1 WBC Differential . Differential Comment Auto diff final Sodium Potassium Chloride Carbon Dioxide Anion Gap BUN Creatinine Estimated GFR Random Glucose Calcium Iron 12 L TIBC 172 L % Saturation 7.0 L Ferritin 19 Total Bilirubin AST ALT Alkaline Phosphatase Total Protein Albumin Vitamin B12 402 Folate 12.7 07/18/18 06:47 WBC RBC Hgb Hct MCV MCH MCHC RDW Plt Count MPV Neut % (Auto) Lymph % (Auto) [place] % (Auto) Eos % (Auto) Baso % (Auto) Neut # (Auto) Lymph # (Auto) Yancey # (Auto) Eos # (Auto) Baso # (Auto) WBC Differential Differential Comment Sodium 145 Potassium 3.3 L D Chloride 113 H D Carbon Dioxide 23.4 Anion Gap 9 BUN 5 L Creatinine 0.41 L Estimated GFR Greater than 89 Random Glucose 97 Calcium 7.7 L Iron TIBC % Saturation Ferritin Total Bilirubin 0.3 AST 13 L ALT 8 L Alkaline Phosphatase 48 Total Protein 5.3 L D Albumin 1.8 L Vitamin B12 Folate Imaging Studies: Impressions GI Bleed Scan Nuclear Medicine 07/17/18 00:00 CONCLUSION: 1. Negative GI bleeding scan. Medications: Active Medications Generic Name Dose Route Start Last Admin Trade Name Freq PRN Reason Stop Dose Admin Duloxetine HCl 60 mg 07/17/18 01:00 07/18/18 08:45 Cymbalta PO 60 mg BID [facility] Administration Hydromorphone HCl 1 mg 07/17/18 00:06 07/17/18 04:39 Dilaudid Pf Inj IV.PUSH 1 mg Q4H PRN Administration PAIN 6-10 Pantoprazole Sodium 80 mg/ 100 mls @ 10 mls/hr 07/16/18 23:00 07/18/18 06:28 Sodium Chloride IV.CONT 10 mls/hr CONT [facility] Infusion Ciprofloxacin/Dextrose 400 mg in 200 mls @ 200 mls/hr 07/17/18 00:15 06:26 Cipro 400 Mg/200 Ml Inj IV.SIG Infused Q12H [facility] Infusion Metronidazole/Sodium Chloride 100 mls @ 100 mls/hr 07/17/18 01:00 07/18/18 08 :45 Flagyl 500 Mg Inj IV.SIG 100 mls/hr Q8H [facility] Administration Nicotine 1 patch 07/17/18 12:15 07/18/18 08:45 Habitrol 14 Mg Patch.24 Hr T-DERMAL 1 patch DAILY [facility] Administration Patch Removal 1 each 07/18/18 09:00 07/18/18 08:46 Remove Old Patch T-DERMAL 1 each DAILY [facility] Administration Senna/Docusate Sodium 1 tab 07/17/18 09:00 07/18/18 08:46 Carlita-Colace PO Not Given BID [facility] Objective Remarks: GENERAL: Cachectic female patient, ambulating in room, in no acute distress. SKIN: Warm and dry. HEAD: Normocephalic. EYES: No scleral icterus. No injection or drainage. NECK: Supple, trachea midline. CARDIOVASCULAR: Regular rate and rhythm without murmurs. RESPIRATORY: Posterior breath sounds equal bilaterally. No accessory muscle use. GASTROINTESTINAL: Abdomen flat, soft, non-tender, nondistended. EXTREMITIES: No cyanosis, or edema. MUSCULOSKELETAL: Adequate muscle tone. NEUROLOGICAL: No obvious focal deficit. Awake, alert, and oriented x3. PSYCHIATRIC: Appropriate mood and affect; insight and judgment normal. Assessment/Plan - Plan Ms. Jovel, is a 57-year-old female patient with metastatic lung adenocarcinoma with metastatic disease to the hilar adenopathy, mediastinal adenopathy, retroperitoneal adenopathy, splenic lesion. She was 100% PD-L1 positive with a good response to Keytruda, this has been on hold for several months due to thyrotoxicosis. This hospital admission is for GI bleed and anemia. Plan 1. Metastatic lung adenocarcinoma, Keytruda on hold r/t thyrotoxicosis. 2. GI bleed, management per gastroenterology. Patient status post EGD on results noted: Esophagitis, white exudates consistent with candidiasis in the distal esophagus, normal stomach mucosa, normal duodenal mucosa, hiatal hernia. Biopsies pending. Recommendations for colonoscopy for the GI bleed. Start fluconazole for candidiasis. 3. Anemia, S/P1 unit PRBC on 07/16/2018. stable H&H today. We will continue to monitor CBC. Iron studies revealed: Iron 12, TIBC 172, % saturation 7.0, B-12 402 and folate 12.7. 4. Consult to general surgery for evaluation of small bowel thickening, questionable mass and abscess. - Attending Statement The exam, history, and the medical decision-making described in the above note were completed with the assistance of the mid-level provider. I reviewed and agree with the findings presented. I attest that I had a [id number] encounter with the patient on the same day, and personally performed and documented my assessment and findings in the medical record. 57 yoF with metastatic NSCLC admitted with GIB. s/p EDG with no evidence of bleeding, scope revealed esophageal candidiasis. Started on oral fluconazole. Discontinued cipro/flagyl. GI team plans for colonoscopy. Will consult surgery to obtain opionon on small bowel thickening/mass. Iron studies revealed low iron--truly mixed picture with likely a component of chronic inflammation due to maligancy and a large component of iron loss. Patient would benefit from IV iron, wishes to hold at this time. Thrombocytosis: likely reactive. Will need to follow in the outpatient setting. patient reports that she wishes to go home. Strongly encouraged patient to stay inpatient to finish work up. She has ongoing diarrhea, abdominal distention, dark tarry stools that worsen with eating.
--- NOTE | 2018-07-18 12:22 | P.PN ---
Subjective Interval history: This is a pleasant 57 y/o Female with Small Cell lung cancer, Anxiety disorder, Depression, COPD Chronic Pain and Tobacco Abuse, referred to ER by her Primary mattress specialist for blood transfusion, Melenic stools, CT Chest w/ persistent focal densities in the lungs , inferior left lateral lobe mass increased in size, 1.4 cm breast mass seen on prior exam. CT Abdomen/Pelvis suspected thickening small bowel and anterior right mid abdomen, mild ascites, gallbladder wall thickening, persistent 4 cm splenic mass. 2u pRBC ordered, receiving transfusion at this time. 07/18: patient seen in her bedroom status pos EGD, adamant she wants to go home now cleared by General Surgery and GI specialist, no nausea, vomit or diarrhea, okay to discharge. Physical Exam Vital signs: Vital Signs 07/17/18 16:00 07/17/18 19:15 07/17/18 20:00 Temperature 97.4 F L 96.8 F L 98.3 F Pulse Rate 69 54 L Respiratory Rate 16 16 Blood Pressure 111/64 98/78 L 94/60 L Pulse Oximetry 98 98 07/18/18 00:00 07/18/18 00:08 07/18/18 04:00 Temperature 98.3 F 98.3 F Pulse Rate 58 L 67 62 Respiratory Rate 16 16 Blood Pressure 105/65 99/64 L Pulse Oximetry 98 98 07/18/18 08:00 Temperature 97.5 F L Pulse Rate 57 L Respiratory Rate 16 Blood Pressure 100/63 Pulse Oximetry 99 Intake & Output 07/17/18 07/18/18 07/18/18 18:59 06:59 18:59 Intake Total 300 / 300 540 / 540 100 / 100 Balance 300 / 300 540 / 540 100 / 100 Weight 41.2 kg Intake: IV 200 / 200 540 / 540 100 / 100 Protonix Inj 80 MG In NS Inj 140 / 140 100 ML @ 10 mls/hr IV.CONT CONT TISH Rx#:[id number] Cipro 400 MG/200 ML Inj 400 mg 200 / 200 In 200 ml @ 200 mls/hr IV.SIG Q12H TISH Rx#:[id number] Flagyl 500 MG Inj 100 ML @ 100 200 / 200 200 / 200 100 / 100 mls/hr IV.SIG Q8H TISH Rx#: [id number] Anesthesia Amount 100 / 100 Other: # Voids 2 Date of Last Bowel Movement 07/17/18 07/15/18 Narrative: GENERAL: No acute distress. HEENT: PERRLA, EOMI. No scleral icterus or conjunctival pallor. CARDIOVASCULAR: Regular rate and rhythm. RESPIRATORY: No obvious rhonchi or wheezing. Clear to auscultation. GASTROINTESTINAL: Abdomen soft, generalized tenderness to palpation MUSCULOSKELETAL: Extremities without clubbing, cyanosis, or edema. NEUROLOGICAL: No focal deficits. Results - Labs CBC & Chem 7: 07/18/18 06:47 07/18/18 06:47 Laboratory Results - last 24 hr 07/17/18 07/17/18 07/18/18 18:05 20:16 06:47 WBC 11.3 H RBC 3.64 L Hgb 8.8 L 8.8 L Hct 28.1 L 28.9 L MCV 79.5 L MCH 24.2 L MCHC 30.4 L RDW 19.9 H Plt Count 505 H MPV 7.7 Neut % (Auto) 87.3 H Lymph % (Auto) 6.7 L [place] % (Auto) 4.8 Eos % (Auto) 0.5 Baso % (Auto) 0.7 Neut # (Auto) 9.9 H Lymph # (Auto) 0.8 L [place] # (Auto) 0.5 Eos # (Auto) 0.1 Baso # (Auto) 0.1 WBC Differential . Differential Comment Auto diff final Sodium Potassium Chloride Carbon Dioxide Anion Gap BUN Creatinine Estimated GFR Random Glucose Calcium Iron 12 L TIBC 172 L % Saturation 7.0 L Ferritin 19 Total Bilirubin AST ALT Alkaline Phosphatase Total Protein Albumin Vitamin B12 402 Folate 12.7 07/18/18 06:47 WBC RBC Hgb Hct MCV MCH MCHC RDW Plt Count MPV Neut % (Auto) Lymph % (Auto) [place] % (Auto) Eos % (Auto) Baso % (Auto) Neut # (Auto) Lymph # (Auto) [place] # (Auto) Eos # (Auto) Baso # (Auto) WBC Differential Differential Comment Sodium 145 Potassium 3.3 L D Chloride 113 H D Carbon Dioxide 23.4 Anion Gap 9 BUN 5 L Creatinine 0.41 L Estimated GFR Greater than 89 Random Glucose 97 Calcium 7.7 L Iron TIBC % Saturation Ferritin Total Bilirubin 0.3 AST 13 L ALT 8 L Alkaline Phosphatase 48 Total Protein 5.3 L D Albumin 1.8 L Vitamin B12 Folate - Imaging Impressions GI Bleed Scan Nuclear Medicine 07/17/18 00:00 CONCLUSION: 1. Negative GI bleeding scan. Chest CT 07/16/18 21:14 CONCLUSION: 1. Diffuse emphysematous change. 2. Interstitial disease being worse at the bases especially on the left. 3. Persistent focal densities in the lungs including an irregular density in the right upper lobe, groundglass opacity in the left lingula, focal density in the inferior lateral left lower lobe, and a subpleural density in the posterior lateral left mid chest. The mass at the inferior left lateral lower lobe has increased in size since the prior exam. All the other findings are stable. All these findings could be further characterized with a PET FDG study. 4. 1.4 cm left breast mass. This was present on the prior exam. Abdomen/Pelvis CT 07/16/18 22:29 CONCLUSION: 1. Area of suspected thickening small bowel in the posterior left mid abdomen and possibly to a lesser degree at the anterior right mid abdomen. The cause of these areas of suspected small bowel thickening and dilatation are not known. 2. Mild ascites. 3. Mild intrahepatic biliary duct dilatation. The gallbladder is nondistended. The gallbladder wall appears thickened. 4. Persistent 4 cm splenic mass. This appears larger on the current exam. - Procedures IMPRESSIONS: 1. There was LA Class A esophagitis noted 2. White exudates consistent with candidiasis in the distal esophagus 3. Bx done 4. The mucosa of the stomach appeared normal 5. Normal duodenal mucosa in the entire duodenum 6. Retroflexed views revealed a hiatal hernia RECOMMENDATIONS: 1. Await biopsy results. Biopsy results will not be ready for 7-10 days. If you don't hear from us in two weeks, call our office for biopsy results. 2. Colonoscopy for GIB work up PATIENT CONDITION: stable DISPOSITION: Inpatient REPEAT EXAM: Return as needed for EGD Garcia Gonzalez MD eSigned: Garcia Gonzalez MD 07/17/2018 1:43 PM Assessment and Plan - Assessment (1) GI bleed Code(s): K92.2 - Gastrointestinal hemorrhage, unspecified Status: Acute (2) Anemia Code(s): D64.9 - Anemia, unspecified Status: Acute (3) Intractable abdominal pain Code(s): R10.9 - Unspecified abdominal pain Status: Acute (4) Lung cancer Code(s): C34.90 - Malignant neoplasm of unspecified part of unspecified bronchus or lung Status: Acute - Plan 1. GI Bleed: Hemoccult +, Protonix gtt, consult GI for further evaluation/ intervention. as per GI Status post EGD found LA class A esophagitis, white exudates on distal esophagus for Esophageal Candidiasis, Hiatal Hernia, to follow biopsy report as outpatient continue Fluconazole and will follow GI specialist in 2 weeks. 2. Anemia secondary to GI bleed, status post blood transfusion of two units of PRBCs at this time Hemoglobin 8.8 will follow financial specialist, GI specialist and PCP. 3. Metastatic lung adenocarcinoma, Keytruda on hold r/t thyrotoxicosis. Primary Oncology following. 4. Intractable Abd Pain: CT Abd/Pelvis w/ small bowel wall thickening, gallbladder wall thickening, images reviewed, WBC 13.1, possible colitis/early cholecystitis, will start on empiric treatment w/ Cipro/Flagyl, analgesics/antiemetics as needed. today evaluated by General Surgery Doctor Moon the patient is adamant going home will be followed as outpatient. 5. Depression continue Home medicines. 6. Hypothyroidism continue hormonal therapy as outpatient 7. COPD/Emphysema non exacerbated 8. Tobacco dependence strongly recommended to stop smoking. giving Nicotine replacement. 9. Esophageal Candidiasis continue Fluconazole for 10 more days. DVT Prophylaxis: Pharmacologic contraindication due to GI Bleed Code Status: Full Code. Discussed Condition With: Patient and her Daughter in the room. Discharge Planning: Okay to discharge from GI specialist and General Surgery. (1) GI bleed Qualifiers: GI bleed type/associated pathology: unspecified gastrointestinal hemorrhage type Qualified Code(s): K92.2 - Gastrointestinal hemorrhage, unspecified (2) Anemia Qualifiers: Anemia type: other cause Other causes of anemia: acute posthemorrhagic Qualified Code(s): D62 - Acute posthemorrhagic anemia (4) Lung cancer Qualifiers: Laterality: unspecified laterality Lung location: unspecified part of lung Qualified Code(s): C34.90 - Malignant neoplasm of unspecified part of unspecified bronchus or lung
[2018-07-18 14:07] VITALS: BP 97/66; PULSE 69; TEMP 98.1; O2SAT 100
--- NOTE | 2018-07-18 15:13 | P.PNGI ---
Subjective Interval history: Sitting up in the chair and very anxious to go home Patient has tolerated clear liquids but has not eaten any food denies any nausea vomiting or abdominal pain Last hemoglobin noted 8.8 <Shayy Schmidt - Last Filed: 07/18/18 15:09> Interval history: agree with the note and plan, continue PPI, follow up as an outpatient in the office in few weeks <RudolphcesiaWhit palmer - Last Filed: 07/18/18 20:39> Physical Exam Vital signs: Vital Signs 07/17/18 16:00 07/17/18 19:15 07/17/18 20:00 Temperature 97.4 F L 96.8 F L 98.3 F Pulse Rate 69 54 L Respiratory Rate 16 16 Blood Pressure 111/64 98/78 L 94/60 L Pulse Oximetry 98 98 07/18/18 00:00 07/18/18 00:08 07/18/18 04:00 Temperature 98.3 F 98.3 F Pulse Rate 58 L 67 62 Respiratory Rate 16 16 Blood Pressure 105/65 99/64 L Pulse Oximetry 98 98 07/18/18 08:00 07/18/18 12:00 Temperature 97.5 F L 98.1 F Pulse Rate 57 L 69 Respiratory Rate 16 16 Blood Pressure 100/63 97/66 L Pulse Oximetry 99 100 Intake & Output 07/17/18 07/18/18 07/18/18 18:59 06:59 18:59 Intake Total 300 / 300 540 / 540 100 / 100 Balance 300 / 300 540 / 540 100 / 100 Weight 41.2 kg Intake: IV 200 / 200 540 / 540 100 / 100 Protonix Inj 80 MG In NS Inj 140 / 140 100 ML @ 10 mls/hr IV.CONT CONT TISH Rx#:[id number] Cipro 400 MG/200 ML Inj 400 mg 200 / 200 In 200 ml @ 200 mls/hr IV.SIG Q12H TISH Rx#:[id number] Flagyl 500 MG Inj 100 ML @ 100 200 / 200 200 / 200 100 / 100 mls/hr IV.SIG Q8H TISH Rx#: [id number] Anesthesia Amount 100 / 100 Other: # Voids 2 Date of Last Bowel Movement 07/17/18 07/15/18 - Constitutional no acute distress, thin - Routine HEENT Exam Head: Present: normocephalic ENT: Present: mucous membranes moist - Routine Abdominal Exam Present: soft, normoactive bowel sounds (No abdominal pain) <Shayy Schmidt - Last Filed: 07/18/18 15:09> Vital signs: Vital Signs 07/18/18 00:00 07/18/18 00:08 07/18/18 04:00 Temperature 98.3 F 98.3 F Pulse Rate 58 L 67 62 Respiratory Rate 16 16 Blood Pressure 105/65 99/64 L Pulse Oximetry 98 98 07/18/18 08:00 07/18/18 12:00 Temperature 97.5 F L 98.1 F Pulse Rate 57 L 69 Respiratory Rate 16 16 Blood Pressure 100/63 97/66 L Pulse Oximetry 99 100 Intake & Output 07/18/18 07/18/18 07/19/18 06:59 18:59 06:59 Intake Total 540 / 540 100 / 100 Balance 540 / 540 100 / 100 Weight 41.2 kg Intake: IV 540 / 540 100 / 100 Protonix Inj 80 MG In NS Inj 140 / 140 100 ML @ 10 mls/hr IV.CONT CONT TISH Rx#:[id number] Cipro 400 MG/200 ML Inj 400 mg 200 / 200 In 200 ml @ 200 mls/hr IV.SIG Q12H TISH Rx#:[id number] Flagyl 500 MG Inj 100 ML @ 100 200 / 200 100 / 100 mls/hr IV.SIG Q8H TISH Rx#: [id number] Other: Date of Last Bowel Movement 07/17/18 07/15/18 <Whit Denton - Last Filed: 07/18/18 20:39> Results - Labs CBC & Chem 7: 07/18/18 06:47 07/18/18 06:47 Laboratory Results - last 24 hr 07/17/18 07/17/18 07/18/18 18:05 20:16 06:47 WBC 11.3 H RBC 3.64 L Hgb 8.8 L 8.8 L Hct 28.1 L 28.9 L MCV 79.5 L MCH 24.2 L MCHC 30.4 L RDW 19.9 H Plt Count 505 H MPV 7.7 Neut % (Auto) 87.3 H Lymph % (Auto) 6.7 L [place] % (Auto) 4.8 Eos % (Auto) 0.5 Baso % (Auto) 0.7 Neut # (Auto) 9.9 H Lymph # (Auto) 0.8 L [place] # (Auto) 0.5 Eos # (Auto) 0.1 Baso # (Auto) 0.1 WBC Differential . Differential Comment Auto diff final Sodium Potassium Chloride Carbon Dioxide Anion Gap BUN Creatinine Estimated GFR Random Glucose Calcium Iron 12 L TIBC 172 L % Saturation 7.0 L Ferritin 19 Total Bilirubin AST ALT Alkaline Phosphatase Total Protein Albumin Vitamin B12 402 Folate 12.7 07/18/18 06:47 WBC RBC Hgb Hct MCV MCH MCHC RDW Plt Count MPV Neut % (Auto) Lymph % (Auto) [place] % (Auto) Eos % (Auto) Baso % (Auto) Neut # (Auto) Lymph # (Auto) [place] # (Auto) Eos # (Auto) Baso # (Auto) WBC Differential Differential Comment Sodium 145 Potassium 3.3 L D Chloride 113 H D Carbon Dioxide 23.4 Anion Gap 9 BUN 5 L Creatinine 0.41 L Estimated GFR Greater than 89 Random Glucose 97 Calcium 7.7 L Iron TIBC % Saturation Ferritin Total Bilirubin 0.3 AST 13 L ALT 8 L Alkaline Phosphatase 48 Total Protein 5.3 L D Albumin 1.8 L Vitamin B12 Folate - Imaging Impressions GI Bleed Scan Nuclear Medicine 07/17/18 00:00 CONCLUSION: 1. Negative GI bleeding scan. <Shayy Schmidt M - Last Filed: 07/18/18 15:09> - Labs CBC & Chem 7: 07/18/18 06:47 07/18/18 06:47 Laboratory Results - last 24 hr 07/17/18 07/18/18 07/18/18 20:16 06:47 06:47 WBC 11.3 H RBC 3.64 L Hgb 8.8 L 8.8 L Hct 28.1 L 28.9 L MCV 79.5 L MCH 24.2 L MCHC 30.4 L RDW 19.9 H Plt Count 505 H MPV 7.7 Neut % (Auto) 87.3 H Lymph % (Auto) 6.7 L [place] % (Auto) 4.8 Eos % (Auto) 0.5 Baso % (Auto) 0.7 Neut # (Auto) 9.9 H Lymph # (Auto) 0.8 L [place] # (Auto) 0.5 Eos # (Auto) 0.1 Baso # (Auto) 0.1 WBC Differential . Differential Comment Auto diff final Sodium 145 Potassium 3.3 L D Chloride 113 H D Carbon Dioxide 23.4 Anion Gap 9 BUN 5 L Creatinine 0.41 L Estimated GFR Greater than 89 Random Glucose 97 Calcium 7.7 L Total Bilirubin 0.3 AST 13 L ALT 8 L Alkaline Phosphatase 48 Total Protein 5.3 L D Albumin 1.8 L <Whit Denton - Last Filed: 07/18/18 20:39> Assessment and Plan (1) GI bleed Status: Acute Code(s): K92.2 - Gastrointestinal hemorrhage, unspecified (2) Anemia Status: Acute Code(s): D64.9 - Anemia, unspecified (3) Lung cancer Status: Acute Code(s): C34.90 - Malignant neoplasm of unspecified part of unspecified bronchus or lung (4) Intractable abdominal pain Status: Acute Code(s): R10.9 - Unspecified abdominal pain - Plan Dyspepsia onset of symptoms approximately 2 months ago in which patient has been using NSAIDs and some Protonix. Previous EGD was done on May 10 and [place]town facility but unknown results. Does have decreased appetite. Melena stools worsened over the past week and a half with abdominal pain mid abdomen and epigastric region with bloating. Loose stools off and on for approximately 6 weeks. Patient is currently being treated for small cell lung cancer. Uncontrolled pain epigastric and abdominal pain with some guarding pain scale 10 out of 10. Currently patient is n.p.o. Symptomatic anemia requiring transfusions over the past week current hemoglobin 7.7 07/18/2018 patient is status post EGD from 07/17/2018 admission date. Findings included LA class a esophagitis, and [place] distal esophagus, hiatal hernia. Patient has tolerated clear liquid diet and has been advanced to regular soft foods. Will monitor toleration today and if okay from a GI standpoint patient can DC. Early patient is very anxious to discharge current hemoglobin 8.8. Discussed with daughter and patient that she needs to follow-up with GI in 2-4 weeks. Patient on fluconazole 200 mg daily. Denies any acute symptoms of nausea vomiting or abdominal pain. Plan Diet transition to solid soft foods will check for toleration Supportive care Fluconazole Follow-up in GI office in 2-4 weeks if patient is discharged Patient was seen per myself and Dr. Denton, note was written on his behalf <Shayy Schmidt M - Last Filed: 07/18/18 15:09> (1) GI bleed Status: Acute Code(s): K92.2 - Gastrointestinal hemorrhage, unspecified (2) Anemia Status: Acute Code(s): D64.9 - Anemia, unspecified (3) Lung cancer Status: Acute Code(s): C34.90 - Malignant neoplasm of unspecified part of unspecified bronchus or lung (4) Intractable abdominal pain Status: Acute Code(s): R10.9 - Unspecified abdominal pain <Whit Denton - Last Filed: 07/18/18 20:39> <Shayy Schmidt M - Last Filed: 07/18/18 15:09> (1) GI bleed Qualifiers: GI bleed type/associated pathology: unspecified gastrointestinal hemorrhage type Qualified Code(s): K92.2 - Gastrointestinal hemorrhage, unspecified (2) Anemia Qualifiers: Anemia type: other cause Other causes of anemia: acute posthemorrhagic Qualified Code(s): D62 - Acute posthemorrhagic anemia (3) Lung cancer Qualifiers: Laterality: unspecified laterality Lung location: unspecified part of lung Qualified Code(s): C34.90 - Malignant neoplasm of unspecified part of unspecified bronchus or lung <Whit Denton - Last Filed: 07/18/18 20:39> (1) GI bleed Qualifiers: GI bleed type/associated pathology: unspecified gastrointestinal hemorrhage type Qualified Code(s): K92.2 - Gastrointestinal hemorrhage, unspecified (2) Anemia Qualifiers: Anemia type: other cause Other causes of anemia: acute posthemorrhagic Qualified Code(s): D62 - Acute posthemorrhagic anemia (3) Lung cancer Qualifiers: Laterality: unspecified laterality Lung location: unspecified part of lung Qualified Code(s): C34.90 - Malignant neoplasm of unspecified part of unspecified bronchus or lung
--- NOTE | 2018-07-18 15:49 | ECG ---
Date Performed: 07/17/2018 Time Performed: 13:16:33 PTAGE: 57 years EKG: Sinus rhythm POSSIBLE LEFT ATRIAL ENLARGEMENT INCOMPLETE RIGHT BUNDLE BRANCH BLOCK BORDERLINE ECG Since PREVIOUS TRACING , no significant change noted PREVIOUS TRACIN06/26/2010 11.46 DOCTOR: Lui Gottlieb Interpretating Date/Time 07/18/2018 15:48:58
--- NOTE | 2018-07-18 17:13 | P.DS ---
Date of admission: 07/17/18 01:04 Primary care physician: UNKNOWN Attending physician on discharge: Ryan Dickerson Anticipated date of discharge: 07/18/18 Brief History from admission: This is a 57-year-old female with a PMH of Small Cell Lung CA, Anxiety, Depression, COPD, Chronic Pain and Tobacco Abuse who was referred to the ER by Dr. Esparza for transfusion. States she was seen by Dr. Esparza on Thursday (3 days ago), Hgb 6.4 at that time, previously 10.1 on 06/12/18, s/p 1u pRBC transfusion 07/12/18. Repeat Hgb today 7.7. Notes dark stool in addition to abdominal pain. Pain is generalized, severe, constant, 10/10, non-radiating, associated w / significant bloating. No reported nausea/vomiting. On arrival, BP 114/67, HR 72, O2 sat 99% on RA, Afebrile. WBC 13.1. Hemoglobin 7.7. INR 1.1. Hemoccult +. Chemistry essentially unremarkable. CT Chest w/ persistent focal densities in the lungs, inferior left lateral lobe mass increased in size, 1.4 cm breast mass seen on prior exam. CT Abdomen/Pelvis suspected thickening small bowel and anterior right mid abdomen, mild ascites, gallbladder wall thickening, persistent 4 cm splenic mass. 2u pRBC ordered, receiving transfusion at this time. DS: Diagnosis - Discharge Diagnosis (1) GI bleed Status: Acute (2) Anemia Status: Acute (3) Intractable abdominal pain Status: Acute (4) Lung cancer Status: Acute DS: Summary Hospital Course: This is a pleasant 57 y/o Female with Small Cell lung cancer, Anxiety disorder, Depression, COPD Chronic Pain and Tobacco Abuse, referred to ER by her Primary technical operations specialist for blood transfusion, Melenic stools, CT Chest w/ persistent focal densities in the lungs , inferior left lateral lobe mass increased in size, 1.4 cm breast mass seen on prior exam. CT Abdomen/Pelvis suspected thickening small bowel and anterior right mid abdomen, mild ascites, gallbladder wall thickening, persistent 4 cm splenic mass. 2u pRBC ordered, receiving transfusion at this time. 07/18: patient seen in her bedroom status pos EGD, adamant she wants to go home now cleared by General Surgery and GI specialist, no nausea, vomit or diarrhea, okay to discharge. Assessment and Plan - Assessment (1) GI bleed Code(s): K92.2 - Gastrointestinal hemorrhage, unspecified Status: Acute (2) Anemia Code(s): D64.9 - Anemia, unspecified Status: Acute (3) Intractable abdominal pain Code(s): R10.9 - Unspecified abdominal pain Status: Acute (4) Lung cancer Code(s): C34.90 - Malignant neoplasm of unspecified part of unspecified bronchus or lung Status: Acute - Plan 1. GI Bleed: Hemoccult +, Protonix gtt, consult GI for further evaluation/ intervention. as per GI Status post EGD found LA class A esophagitis, white exudates on distal esophagus for Esophageal Candidiasis, Hiatal Hernia, to follow biopsy report as outpatient continue Fluconazole and will follow GI specialist in 2 weeks. 2. Anemia secondary to GI bleed, status post blood transfusion of two units of PRBCs at this time Hemoglobin 8.8 will follow therapeutic sales specialist, GI specialist and PCP. 3. Metastatic lung adenocarcinoma, Keytruda on hold r/t thyrotoxicosis. Primary Oncology following. 4. Intractable Abd Pain: CT Abd/Pelvis w/ small bowel wall thickening, gallbladder wall thickening, images reviewed, WBC 13.1, possible colitis/early cholecystitis, will start on empiric treatment w/ Cipro/Flagyl, analgesics/antiemetics as needed. today evaluated by General Surgery Doctor Moon the patient is adamant going home will be followed as outpatient. 5. Depression continue Home medicines. 6. Hypothyroidism continue hormonal therapy as outpatient 7. COPD/Emphysema non exacerbated 8. Tobacco dependence strongly recommended to stop smoking. giving Nicotine replacement. 9. Esophageal Candidiasis continue Fluconazole for 10 more days. DVT Prophylaxis: Pharmacologic contraindication due to GI Bleed Code Status: Full Code. Discussed Condition With: Patient and her Daughter in the room. Discharge Planning: Okay to discharge from GI specialist and General Surgery. - Time Spent with Patient Total time spent providing and/or coordinating discharge services: Less than 30 minutes - Quality: VTE Deep Vein Thrombosis/Pulmonary Embolism Present on Admission: No Exam Vital signs: Vital Signs 07/17/18 19:15 07/17/18 20:00 07/18/18 00:00 Temperature 96.8 F L 98.3 F 98.3 F Pulse Rate 54 L 58 L Respiratory Rate 16 16 Blood Pressure 98/78 L 94/60 L 105/65 Pulse Oximetry 98 98 07/18/18 00:08 07/18/18 04:00 07/18/18 08:00 Temperature 98.3 F 97.5 F L Pulse Rate 67 62 57 L Respiratory Rate 16 16 Blood Pressure 99/64 L 100/63 Pulse Oximetry 98 99 07/18/18 12:00 Temperature 98.1 F Pulse Rate 69 Respiratory Rate 16 Blood Pressure 97/66 L Pulse Oximetry 100 Intake & Output 07/17/18 07/18/18 07/18/18 18:59 06:59 18:59 Intake Total 300 / 300 540 / 540 100 / 100 Balance 300 / 300 540 / 540 100 / 100 Weight 41.2 kg Intake: IV 200 / 200 540 / 540 100 / 100 Protonix Inj 80 MG In NS Inj 140 / 140 100 ML @ 10 mls/hr IV.CONT CONT TISH Rx#:[id number] Cipro 400 MG/200 ML Inj 400 mg 200 / 200 In 200 ml @ 200 mls/hr IV.SIG Q12H TISH Rx#:[id number] Flagyl 500 MG Inj 100 ML @ 100 200 / 200 200 / 200 100 / 100 mls/hr IV.SIG Q8H TISH Rx#: [id number] Anesthesia Amount 100 / 100 Other: # Voids 2 Date of Last Bowel Movement 07/17/18 07/15/18 Narrative: GENERAL: No acute distress. HEENT: PERRLA, EOMI. No scleral icterus or conjunctival pallor. CARDIOVASCULAR: Regular rate and rhythm. RESPIRATORY: No obvious rhonchi or wheezing. Clear to auscultation. GASTROINTESTINAL: Abdomen soft, generalized tenderness to palpation MUSCULOSKELETAL: Extremities without clubbing, cyanosis, or edema. NEUROLOGICAL: No focal deficits. Results Procedures completed during hospitalization: IMPRESSIONS: 1. There was LA Class A esophagitis noted 2. White exudates consistent with candidiasis in the distal esophagus 3. Bx done 4. The mucosa of the stomach appeared normal 5. Normal duodenal mucosa in the entire duodenum 6. Retroflexed views revealed a hiatal hernia RECOMMENDATIONS: 1. Await biopsy results. Biopsy results will not be ready for 7-10 days. If you don't hear from us in two weeks, call our office for biopsy results. 2. Colonoscopy for GIB work up PATIENT CONDITION: stable DISPOSITION: Inpatient REPEAT EXAM: Return as needed for EGD Garcia Gonzalez MD eSigned: Garcia Gonzalez MD 07/17/2018 1:43 PM Pending studies at discharge: Pending at discharge 07/17/18 Surgical [PTH] Routine Labs on day of discharge: Labs from last 24 hours 07/18/18 07/18/18 07/17/18 06:47 06:47 20:16 WBC 11.3 H RBC 3.64 L Hgb 8.8 L 8.8 L Hct 28.9 L 28.1 L MCV 79.5 L MCH 24.2 L MCHC 30.4 L RDW 19.9 H Plt Count 505 H MPV 7.7 Neut % (Auto) 87.3 H Lymph % (Auto) 6.7 L Scott % (Auto) 4.8 Eos % (Auto) 0.5 Baso % (Auto) 0.7 Neut # (Auto) 9.9 H Lymph # (Auto) 0.8 L Scott # (Auto) 0.5 Eos # (Auto) 0.1 Baso # (Auto) 0.1 WBC Differential . Differential Comment Auto diff final Sodium 145 Potassium 3.3 L D Chloride 113 H D Carbon Dioxide 23.4 Anion Gap 9 BUN 5 L Creatinine 0.41 L Estimated GFR Greater than 89 Random Glucose 97 Calcium 7.7 L Iron TIBC % Saturation Ferritin Total Bilirubin 0.3 AST 13 L ALT 8 L Alkaline Phosphatase 48 Total Protein 5.3 L D Albumin 1.8 L Vitamin B12 Folate 07/17/18 18:05 WBC RBC Hgb Hct MCV MCH MCHC RDW Plt Count MPV Neut % (Auto) Lymph % (Auto) Scott % (Auto) Eos % (Auto) Baso % (Auto) Neut # (Auto) Lymph # (Auto) Scott # (Auto) Eos # (Auto) Baso # (Auto) WBC Differential Differential Comment Sodium Potassium Chloride Carbon Dioxide Anion Gap BUN Creatinine Estimated GFR Random Glucose Calcium Iron 12 L TIBC 172 L % Saturation 7.0 L Ferritin 19 Total Bilirubin AST ALT Alkaline Phosphatase Total Protein Albumin Vitamin B12 402 Folate 12.7 - Impressions ITS Impressions Chest CT 07/16/18 21:14 CONCLUSION: 1. Diffuse emphysematous change. 2. Interstitial disease being worse at the bases especially on the left. 3. Persistent focal densities in the lungs including an irregular density in the right upper lobe, groundglass opacity in the left lingula, focal density in the inferior lateral left lower lobe, and a subpleural density in the posterior lateral left mid chest. The mass at the inferior left lateral lower lobe has increased in size since the prior exam. All the other findings are stable. All these findings could be further characterized with a PET FDG study. 4. 1.4 cm left breast mass. This was present on the prior exam. Abdomen/Pelvis CT 07/16/18 22:29 CONCLUSION: 1. Area of suspected thickening small bowel in the posterior left mid abdomen and possibly to a lesser degree at the anterior right mid abdomen. The cause of these areas of suspected small bowel thickening and dilatation are not known. 2. Mild ascites. 3. Mild intrahepatic biliary duct dilatation. The gallbladder is nondistended. The gallbladder wall appears thickened. 4. Persistent 4 cm splenic mass. This appears larger on the current exam. GI Bleed Scan Nuclear Medicine 07/17/18 00:00 CONCLUSION: 1. Negative GI bleeding scan. Discharge Plan - Discharge Disposition Patient Disposition: 01 Discharge Home - Discharge Condition Condition: Stable - Discharge Order Discharge Orders: Discharge Order (Routine); Ordered 07/18/18 Ordered By: Ryan Dickerson - Discharge Details Anticipated Discharge Date: 07/18/18 Discharge Comment: Follow with PCP in three days - Physicians Team Primary Care Provider: UNKNOWN, Attending Provider: Ryan Dickerson Other Providers: Whit Denton MD ; Gudelia Nunez ; Nativis, [facility] ; Delfin Mustafa MD ; Surgeons,[facility]
--- NOTE | 2018-07-18 17:30 | P.CONGS ---
[facility] Gen Surgery Consult Note Consult date: 07/18/18 Reason for consult: other (Abnormal CT scan showing abnormality in small bowel) Narrative: CONSULTATION NOTE FOR SURGICAL ATTENDING, DR. DELFIN MUSTAFA Patient was admitted to the hospital thought to have a GI bleed and underwent endoscopy showing severe esophagitis thought to be from Vanessa A CT scan of her abdomen showed a abnormality in the small bowel suggestive of a mass. Patient is being treated for metastatic lung cancer but is been off therapy for about 5 months because of side effects of her chemotherapy. She also is known to have a splenic mass that is enlarging. Surgery was consulted to give an opinion about the growing mass in the small bowel Presently she has no abdominal pain she just has diarrhea with meals. Review of Systems All other systems reviewed negative except as stated in [facility] - History History Provided By: Patient - Medical History Medical History: Medical History (Last Reviewed 07/18/18 @ 17:27 by Delfin Mustafa MD) Anxiety COPD (chronic obstructive pulmonary disease) Depressed Hypothyroidism (acquired) Inguinal hernia Small cell lung cancer - Surgical History Surgical History: Surgical History (Last Reviewed 07/18/18 @ 17:27 by Delfin Mustafa MD) History of hip surgery - Tobacco History Second Hand Smoke Exposure: No Tobacco Use In Past 30 Days: Yes Smoking Status: Current every day smoker Tobacco Type: Cigarettes - Alcohol History How Often Do You Have a Drink Containing Alcohol: Never - Substance Use History Substance History: No History of Abuse - Travel History Recent Travel in the [place] Within the Last 8 Weeks: No Recent Travel Out of the Country Within the Last 8 Weeks: No - Immunization History Tetanus Immunization: Unsure Medications and Allergies Active Medications: Active Medications Acetaminophen (Tylenol) 650 mg PO Q4H PRN PRN Reason: Temp > 100.4 Al Hydroxide/Mg Hydroxide (Milk Of Magnesia Liq) 30 ml PO Q12H PRN PRN Reason: Mild Constipation Bisacodyl (Dulcolax Supp) 10 mg RECTAL DAILY PRN PRN Reason: SEVERE CONSITIPATION Duloxetine HCl (Cymbalta) 60 mg PO BID [facility] [place] Last Admin: 07/18/18 08:45 Dose: 60 mg Fluconazole (Diflucan) 200 mg PO Q24H [facility] Last Admin: 07/18/18 12:44 Dose: 200 mg Hydromorphone HCl (Dilaudid Pf Inj) 1 mg IV.PUSH Q4H PRN PRN Reason: PAIN 6-10 Last Admin: 07/17/18 04:39 Dose: 1 mg Pantoprazole Sodium 80 mg/ (Sodium Chloride) 100 mls @ 10 mls/hr IV.CONT CONT [facility] [place] Last Infusion: 07/18/18 06:28 Dose: 10 mls/hr Lactulose (Lactulose Liq) 30 ml PO DAILY PRN PRN Reason: SEVERE CONSITIPATION Nicotine (Habitrol 14 Mg Patch.24 Hr) 1 patch T-DERMAL DAILY [facility] [place] Last Admin: 07/18/18 08:45 Dose: 1 patch Oxycodone HCl (Roxicodone) 10 mg PO Q4H PRN PRN Reason: PAIN 3-5 Patch Removal (Remove Old Patch) 1 each T-DERMAL DAILY [facility] [place] Last Admin: 07/18/18 08:46 Dose: 1 each Prochlorperazine Edisylate (Compazine Inj) 10 mg IV.PUSH Q6H PRN PRN Reason: NAUSEA/VOMITING Senna/Docusate Sodium (Carlita-Colace) 1 tab PO BID [facility] [place] Last Admin: 07/18/18 08:46 Dose: Not Given Sennosides (Senokot) 17.2 mg PO Q12H PRN PRN Reason: Moderate Constipation Temazepam (Restoril) 15 mg PO HS PRN PRN Reason: INSOMNIA Allergies Allergy/AdvReac Type Severity Reaction Status Date / Time duloxetine Allergy Severe NAUSEA Verified 07/16/18 20:17 morphine Allergy Severe NAUSEA Verified 07/16/18 20:17 rofecoxib Allergy Severe NAUSEA, Verified 07/16/18 20:17 HEADACHE adhesive tape Allergy Rash Verified 07/16/18 20:16 ondansetron [From Zofran] Allergy Vomiting Verified 07/16/18 20:16 Home Medications Medication Instructions Recorded Confirmed Type albuterol sulfate 2 puff INHALATION Q4-6H PRN 06/12/18 07/16/18 History cholecalciferol (vitamin D3) 1,000 unit PO DAILY 06/12/18 07/16/18 History diphenhydramine HCl 25 mg PO Q4-6H PRN 06/12/18 07/16/18 History duloxetine 60 mg PO BID 06/12/18 07/16/18 History gabapentin 300 mg PO TID 06/12/18 07/16/18 History oxycodone 10 mg PO Q4H PRN 06/12/18 07/16/18 History oxycodone 30 mg PO Q12H 06/12/18 07/16/18 History pantoprazole 40 mg PO DAILY 06/12/18 07/16/18 History tizanidine 4 mg PO Q8H PRN 06/12/18 07/16/18 History ferrous sulfate [iron] 325 mg PO BID 07/16/18 07/16/18 History Exam Vital signs: Vital Signs 07/17/18 19:15 07/17/18 20:00 07/18/18 00:00 Temperature 96.8 F L 98.3 F 98.3 F Pulse Rate 54 L 58 L Respiratory Rate 16 16 Blood Pressure 98/78 L 94/60 L 105/65 Pulse Oximetry 98 98 07/18/18 00:08 07/18/18 04:00 07/18/18 08:00 Temperature 98.3 F 97.5 F L Pulse Rate 67 62 57 L Respiratory Rate 16 16 Blood Pressure 99/64 L 100/63 Pulse Oximetry 98 99 07/18/18 12:00 Temperature 98.1 F Pulse Rate 69 Respiratory Rate 16 Blood Pressure 97/66 L Pulse Oximetry 100 Intake & Output 07/17/18 07/18/18 07/18/18 18:59 06:59 18:59 Intake Total 300 / 300 540 / 540 100 / 100 Balance 300 / 300 540 / 540 100 / 100 Weight 41.2 kg Intake: IV 200 / 200 540 / 540 100 / 100 Protonix Inj 80 MG In NS Inj 140 / 140 100 ML @ 10 mls/hr IV.CONT CONT TISH Rx#:[id number] Cipro 400 MG/200 ML Inj 400 mg 200 / 200 In 200 ml @ 200 mls/hr IV.SIG Q12H TISH Rx#:[id number] Flagyl 500 MG Inj 100 ML @ 100 200 / 200 200 / 200 100 / 100 mls/hr IV.SIG Q8H TISH Rx#: [id number] Anesthesia Amount 100 / 100 Other: # Voids 2 Date of Last Bowel Movement 07/17/18 07/15/18 Narrative: Patient is sitting in the couch she is dressed in her street clothes She says she needs to go home because she has to see Dr. Esparza tomorrow - Constitutional no acute distress - Routine HEENT Exam Head: Present: normocephalic Eye: Present: EOMI - Routine Neck Exam Present: supple, full ROM, trachea midline - Routine Respiratory Exam Present: CTA bilaterally - Routine Cardiovascular Exam Present: RRR - Routine Abdominal Exam Present: soft Comments: Very thin abdomen no palpable masses appreciated - Routine Skin Exam Present: intact - Routine Neurological Exam Present: alert, oriented X3 - Additional findings Additional findings: ITS Impressions Chest CT 07/16/18 21:14 CONCLUSION: 1. Diffuse emphysematous change. 2. Interstitial disease being worse at the bases especially on the left. 3. Persistent focal densities in the lungs including an irregular density in the right upper lobe, groundglass opacity in the left lingula, focal density in the inferior lateral left lower lobe, and a subpleural density in the posterior lateral left mid chest. The mass at the inferior left lateral lower lobe has increased in size since the prior exam. All the other findings are stable. All these findings could be further characterized with a PET FDG study. 4. 1.4 cm left breast mass. This was present on the prior exam. Abdomen/Pelvis CT 07/16/18 22:29 CONCLUSION: 1. Area of suspected thickening small bowel in the posterior left mid abdomen and possibly to a lesser degree at the anterior right mid abdomen. The cause of these areas of suspected small bowel thickening and dilatation are not known. 2. Mild ascites. 3. Mild intrahepatic biliary duct dilatation. The gallbladder is nondistended. The gallbladder wall appears thickened. 4. Persistent 4 cm splenic mass. This appears larger on the current exam. GI Bleed Scan Nuclear Medicine 07/17/18 00:00 CONCLUSION: 1. Negative GI bleeding scan. EGD results IMPRESSIONS: 1. There was LA Class A esophagitis noted 2. White exudates consistent with candidiasis in the distal esophagus 3. Bx done 4. The mucosa of the stomach appeared normal 5. Normal duodenal mucosa in the entire duodenum 6. Retroflexed views revealed a hiatal hernia RECOMMENDATIONS: 1. Await biopsy results. Biopsy results will not be ready for 7-10 days. If you don't hear from us in two weeks, call our office for biopsy results. 2. Colonoscopy for GIB work up PATIENT CONDITION: stable DISPOSITION: Inpatient REPEAT EXAM: Return as needed for EGD Results - Labs 07/18/18 06:47 07/18/18 06:47 Abnormal lab results 07/17/18 07/17/18 07/18/18 Range/Units 18:05 20:16 06:47 WBC 11.3 H (4.0-11.0) th/mm3 RBC 3.64 L (4.00-5.30) mil/mm3 Hgb 8.8 L 8.8 L (11.6-15.3) gm/dL Hct 28.1 L 28.9 L (35.0-46.0) % MCV 79.5 L (80.0-100.0) fL MCH 24.2 L (27.0-34.0) pg MCHC 30.4 L (32.0-36.0) % RDW 19.9 H (11.6-17.2) % Plt Count 505 H (150-450) th/mm3 Neut % (Auto) 87.3 H (16.0-70.0) % Lymph % (Auto) 6.7 L (9.0-44.0) % Neut # (Auto) 9.9 H (1.8-7.7) th/mm3 Lymph # (Auto) 0.8 L (1.0-4.8) th/mm3 Potassium (3.5-5.1) meq/L Chloride (98-107) meq/L BUN (7-18) mg/dL Creatinine (0.50-1.00) mg/dL Calcium (8.5-10.1) mg/dL Iron 12 L (50-170) mcg/dL TIBC 172 L (250-450) mcg/dL % Saturation 7.0 L (20-50) % AST (15-37) U/L ALT (10-53) U/L Total Protein (6.4-8.2) g/dL Albumin (3.4-5.0) g/dL 07/18/18 Range/Units 06:47 WBC (4.0-11.0) th/mm3 RBC (4.00-5.30) mil/mm3 Hgb (11.6-15.3) gm/dL Hct (35.0-46.0) % MCV (80.0-100.0) fL MCH (27.0-34.0) pg MCHC (32.0-36.0) % RDW (11.6-17.2) % Plt Count (150-450) th/mm3 Neut % (Auto) (16.0-70.0) % Lymph % (Auto) (9.0-44.0) % Neut # (Auto) (1.8-7.7) th/mm3 Lymph # (Auto) (1.0-4.8) th/mm3 Potassium 3.3 L D (3.5-5.1) meq/L Chloride 113 H D (98-107) meq/L BUN 5 L (7-18) mg/dL Creatinine 0.41 L (0.50-1.00) mg/dL Calcium 7.7 L (8.5-10.1) mg/dL Iron (50-170) mcg/dL TIBC (250-450) mcg/dL % Saturation (20-50) % AST 13 L (15-37) U/L ALT 8 L (10-53) U/L Total Protein 5.3 L D (6.4-8.2) g/dL Albumin 1.8 L (3.4-5.0) g/dL Diabetes panel 07/18/18 Range/Units 06:47 Sodium 145 (136-145) meq/L Potassium 3.3 L D (3.5-5.1) meq/L Chloride 113 H D (98-107) meq/L Carbon Dioxide 23.4 (21.0-32.0) meq/L BUN 5 L (7-18) mg/dL Creatinine 0.41 L (0.50-1.00) mg/dL Calcium 7.7 L (8.5-10.1) mg/dL AST 13 L (15-37) U/L ALT 8 L (10-53) U/L Alkaline Phosphatase 48 (45-117) U/L Total Protein 5.3 L D (6.4-8.2) g/dL Albumin 1.8 L (3.4-5.0) g/dL Calcium panel 07/18/18 Range/Units 06:47 Calcium 7.7 L (8.5-10.1) mg/dL Albumin 1.8 L (3.4-5.0) g/dL Pituitary panel 07/18/18 Range/Units 06:47 Sodium 145 (136-145) meq/L Potassium 3.3 L D (3.5-5.1) meq/L Chloride 113 H D (98-107) meq/L Carbon Dioxide 23.4 (21.0-32.0) meq/L BUN 5 L (7-18) mg/dL Creatinine 0.41 L (0.50-1.00) mg/dL Calcium 7.7 L (8.5-10.1) mg/dL Adrenal panel 07/18/18 Range/Units 06:47 Sodium 145 (136-145) meq/L Potassium 3.3 L D (3.5-5.1) meq/L Chloride 113 H D (98-107) meq/L Carbon Dioxide 23.4 (21.0-32.0) meq/L BUN 5 L (7-18) mg/dL Creatinine 0.41 L (0.50-1.00) mg/dL Calcium 7.7 L (8.5-10.1) mg/dL Total Bilirubin 0.3 (0.2-1.0) mg/dL AST 13 L (15-37) U/L ALT 8 L (10-53) U/L Alkaline Phosphatase 48 (45-117) U/L Total Protein 5.3 L D (6.4-8.2) g/dL Albumin 1.8 L (3.4-5.0) g/dL All other labs normal. - Imaging CT scan - abdomen: report reviewed, image reviewed CT scan - chest: report reviewed CT scan - pelvis: report reviewed, image reviewed Assessment and Plan - Assessment (1) Vanessa esophagitis Code(s): B37.81 - Candidal esophagitis Status: Acute (2) Mass of small intestine Code(s): K63.89 - Other specified diseases of intestine Status: Acute (3) Splenic mass Code(s): R16.1 - Splenomegaly, not elsewhere classified Status: Acute (4) Lung cancer Code(s): C34.90 - Malignant neoplasm of unspecified part of unspecified bronchus or lung Status: Acute Qualifiers: Laterality: unspecified laterality Lung location: unspecified part of lung Qualified Code(s): C34.90 - Malignant neoplasm of unspecified part of unspecified bronchus or lung (5) GI bleed Code(s): K92.2 - Gastrointestinal hemorrhage, unspecified Status: Acute Qualifiers: GI bleed type/associated pathology: unspecified gastrointestinal hemorrhage type Qualified Code(s): K92.2 - Gastrointestinal hemorrhage, unspecified (6) Anemia Code(s): D64.9 - Anemia, unspecified Status: Acute Qualifiers: Anemia type: other cause Other causes of anemia: acute posthemorrhagic Qualified Code(s): D62 - Acute posthemorrhagic anemia - Plan Patient pleasant lady who unfortunately has metastatic lung cancer was getting treatment by Dr. Turner but unfortunately had issues with side effects and severe hypothyroidism She has not chemo for about 5 months. I had a discussion in her with her family in the patient I think she would benefit from resection of the small bowel mass that I suspect is metastatic disease. She was insistent on going home so she could see Dr. Esparza tomorrow I gave her my business card I told her to call me after Dr. Esparza sees her tomorrow to review a plan to treat her. Needs continue treatment for her Vanessa esophagitis - Attending Attestation CONSULTATION NOTE FOR SURGICAL ATTENDING, DR. DELFIN MUSTAFA I attest that I had a [id number] encounter with the patient on the same day, and personally performed and documented my assessment and findings in the medical record. The following services were provided during this hospital visit: Chart data review, vital sign assessments/reviewing monitor data Review of consultations notes if present. Medication orders/review and/or management Ordering and/or reviewing lab tests Ordering and/or interpreting/reviewing x-rays and/or diagnostic studies Care of the patient and discussion of the patient with the care team Documentation time To help prompt me to consider important information that might be impacting today's encounter and assessment, Information from prior notes written by myself or my colleagues may have been "brought forward/copy and pasted" into today's note.
== END 2018-07-18 17:46 | disposition home or self-care (01) ==
LOC: NEPC 19:24 → NEDA 07-17 01:04 → N06 07-17 04:16
PROVIDERS: ADMIT Internal Medicine; ATTEND Internal Medicine
PROC: PANENDO (2018-07-17 13:20)